=== PATIENT | male | born 1950 | race Caucasian/White ===

== ENCOUNTER 2022-06-14 10:30 | Outpatient (RCR) | payer MEDICARE, SELFPAY | END 2023-04-26 23:59 | disposition home or self-care (01) | PROVIDERS: PCP Family Medicine; Visit Provider Family Medicine | DX: R26.9 Unspecified abnormalities of gait and mobility (principal) | CPT/HCPCS: 97110; 97162 ==

== ENCOUNTER 2023-04-20 11:30 | Outpatient (CLI) | payer MEDICARE, SELFPAY | END 2023-04-20 11:31 | disposition home or self-care (01) | LOC: AMB 04-23 09:26 | PROVIDERS: PCP Family Medicine; Visit Provider Family Medicine | DX: R53.1 Weakness (principal) | CPT/HCPCS: A0998 ==

== ENCOUNTER 2023-10-05 12:16 | Outpatient (CLI) | payer MEDICARE, SELFPAY | END 2023-10-05 12:17 | disposition home or self-care (01) | LOC: AMB 10-09 11:04 | PROVIDERS: PCP Family Medicine; Visit Provider Emergency Medicine | DX: R53.1 Weakness (principal); E11.65 Type 2 diabetes mellitus with hyperglycemia | CPT/HCPCS: A0425; A0427 ==

== ENCOUNTER 2023-10-05 12:44 | Inpatient (IN) | payer MEDICARE, SELFPAY ==
[2023-10-05] VITALS (9 sets, daily range): BP systolic 115–153; BP diastolic 62–88; PULSE 65–81; RESP 16–18; TEMP 36.8–38.4; O2SAT 91–96; BMI 32.5; BMI 33.4
--- NOTE | 2023-10-05 13:04 | ED_ITS ---
HPI - General Adult General Chief complaint: Weakness Stated complaint: Weakness Time Seen by Provider: 10/05/23 13:04 History of Present Illness HPI narrative: Patient's called for EMS due to patient' s new weakness. EMS needed to use a stair lift to get patient from home. Had stroke in 2019 with left sided weakness. 73-year-old man brought by EMS to the emergency department concern of weakness. Does have a history of CVA with residual left-sided weakness and resides on the lower level the house with walk-in shower end other accommodations. History of diabetes. Apparently began to feel unwell over the course the night. Some cough. Spouse did know this until she went down to take breakfast to him and he did not seem quite right. Seemed confused. Blood sugars were escalating. Just very weak and had to call EMS to assist. Is noted to have a fever here on arrival. Denies chest pain or actual shortness of breath. No vomiting or diarrhea. No nausea. No dysuria or frequency. Related Data Home Medications Medication Instructions Recorded Confirmed amlodipine 5 mg tablet 5 mg PO DAILY 10/05/23 10/05/23 apixaban 5 mg tablet (Eliquis) 5 mg PO BID 10/05/23 10/05/23 ascorbic acid (vitamin C) 500 mg 500 mg PO QPM 10/05/23 10/05/23 tablet atorvastatin 40 mg tablet 40 mg PO QAM 10/05/23 10/05/23 cetirizine 10 mg tablet 10 mg PO DAILY 10/05/23 10/05/23 chlorthalidone 25 mg tablet 25 mg PO DAILY 10/05/23 10/05/23 cinnamon bark 500 mg capsule 500 mg PO DAILY 10/05/23 10/05/23 dulaglutide 3 mg/0.5 mL 3 mg subcut Q7D 10/05/23 10/05/23 subcutaneous pen injector (Trulicity) empagliflozin 25 mg tablet 25 mg PO DAILY 10/05/23 10/05/23 (Jardiance) glipizide 2.5 mg tablet, extended 2.5 mg PO DAILY 10/05/23 10/05/23 release 24 hr levothyroxine 137 mcg tablet 137 mcg PO QAM 10/05/23 10/05/23 lisinopril 40 mg tablet 40 mg PO DAILY 10/05/23 10/05/23 metformin 1,000 mg tablet 1,000 mg PO BID 10/05/23 10/05/23 metoprolol tartrate 25 mg tablet 25 mg PO BID 10/05/23 10/05/23 multivitamin (Daily Multi-Vitamin 1 tab PO QPM 10/05/23 10/05/23 tablet) nitroglycerin 0.4 mg sublingual 0.4 mg sublingual Q5M PRN 10/05/23 10/05/23 tablet omega [id number]-fish oil 1,000 mg 1 cap PO QPM 10/05/23 10/05/23 (120 mg-180 mg) capsule (Fish Oil) Previous Rx's Medication Instructions Recorded amoxicillin 875 mg-potassium 1 tab PO BID #10 tabs 10/07/23 clavulanate 125 mg tablet doxycycline hyclate 100 mg capsule 100 mg PO BID #20 caps 10/07/23 finasteride 5 mg tablet 5 mg PO DAILY #30 tabs 10/07/23 Allergies Allergy/AdvReac Type Severity Reaction Status Date / Time No Known Drug Allergies Allergy Verified 10/05/23 12:56 Review of Systems Status of ROS: Reports: 6 or more systems reviewed and unremarkable except as noted in History and below [facility] Medical History CKD stage 3 due to type 2 diabetes mellitus ?E11.22 - Type 2 diabetes mellitus with diabetic chronic kidney disease (ICD- 10) ?N18.30 - Chronic kidney disease, stage 3 unspecified (ICD-10) Obesity ?E66.9 - Obesity, unspecified (ICD-10) Diabetes mellitus type 2, insulin dependent ?E11.9 - Type 2 diabetes mellitus without complications (ICD-10) ?Z79.4 - nursing home (current) use of insulin (ICD-10) Hypothyroidism ?E03.9 - Hypothyroidism, unspecified (ICD-10) Hyperlipidemia ?E78.5 - Hyperlipidemia, unspecified (ICD-10) CAD (coronary artery disease) ?I25.10 - Atherosclerotic heart disease of [place] coronary artery without angina pectoris (ICD-10) Paroxysmal atrial fibrillation ?I48.0 - Paroxysmal atrial fibrillation (ICD-10) CVA (cerebral vascular accident) ?I63.9 - Cerebral infarction, unspecified (ICD-10) Hypertension ?I10 - Essential (primary) hypertension (ICD-10) Social History What is your current living situation?: I presently have a place to live Problems where you live: no known problems Problems where you live details: [place] In the past 12 months, utilities in danger of being shut off: no In past 12 months, lack of transportation kept you from medical appts, meetings, work, or getting things needed for daily living: no In the past 12 mos, have been you worried that your food would run out before you had money to buy more?: never true In the past 12 mos, the food you bought just didn't last and you didn't have money to buy more?: never true Smoking Status: Never smoker Second hand tobacco smoke exposure: No How often do you have a drink containing alcohol: never AUDIT-C Alcohol total score: 0 Non-prescribed substance use: denies use How often does anyone, including family, friends and others, physically hurt you : never How often does anyone, including family, friends and others, insult or talk down to you: never How often does anyone, including family, friends and others, threaten you with harm: never How often does anyone, including family, friends and others, scream or curse at you: never Exam Narrative: Exam Narrative: Seems little distracted. Skin is quite warm and dry. Well-perfused peripherally. no rashes. Is not tachypneic nor labored in breathing. Heart in regular rate and rhythm. Has persistent crepitus in right greater than left lower lung [place]. Extremities are without edema. abdomen is overweight soft and nontender. Oropharynx is a little sticky. Not erythematous. Moving all extremities without difficulty though the left side is a little weaker than the right generally. He is otherwise generally weak and needs assistance to transition. Const: Vital Signs, click to edit/add: Vital Signs - 24 hr 10/05/23 12:58 Temperature 101.1 F H Pulse Rate [Pulse Oximeter] 81 Respiratory Rate 18 Blood Pressure [Ri ght Upper Arm] 145/62 H Pulse Oximetry 91 Oxygen Delivery Me thod Room Air Documenting provider has reviewed patient's vital signs: yes Course Vital Signs Vital signs: Initial Vital Signs Temperature 101.1 F H 10/05/23 12:58 Temperature Source Temporal Artery Scan 10/05/23 12:58 Pulse Rate 81 10/05/23 12:58 Respiratory Rate 18 10/05/23 12:58 Blood Pressure 145/62 H 10/05/23 12:58 Blood Pressure Mean 89 10/05/23 12:58 Pulse Oximetry 91 10/05/23 12:58 Oxygen Delivery Method Room Air 10/05/23 12:58 Vital Signs Temperature 101.1 F H 10/05/23 12:58 Pulse Rate 81 10/05/23 12:58 Respiratory Rate 18 10/05/23 12:58 Blood Pressure 145/62 H 10/05/23 12:58 Pulse Oximetry 91 10/05/23 12:58 Oxygen Delivery Method Room Air 10/05/23 12:58 Temperature 97.5 F L 10/07/23 11:57 Pulse Rate 58 L 10/07/23 11:57 Respiratory Rate 18 10/07/23 11:57 Blood Pressure 167/75 H 10/07/23 11:57 Pulse Oximetry 96 10/07/23 11:57 Oxygen Delivery Method Room Air 10/07/23 11:57 Medications Administered Medications: Discontinued Medications Generic Name Dose Route Start Last Admin Trade Name Freq PRN Reason Stop Dose Admin Acetaminophen 650 mg 10/05/23 13:45 10/05/23 14:22 Acetaminophen 325 Mg Tablet PO 10/05/23 13:46 650 mg ONCE ONE Administration Acetaminophen 1,000 mg 10/05/23 17:44 10/06/23 00:03 Acetaminophen 325 Mg Tablet PO 1,000 mg Q6H PRN Administration Amlodipine Besylate 5 mg 10/06/23 09:00 10/07/23 09:39 Amlodipine 5 Mg Tablet PO 5 mg DAILY PILLO Administration Apixaban 5 mg 10/05/23 21:00 10/07/23 09:39 Apixaban 5 Mg Tablet PO 5 mg BID PILLO Administration Atorvastatin Calcium 40 mg 10/06/23 09:00 10/07/23 09:38 Atorvastatin Calcium 40 Mg Tablet PO 40 mg QAM PILLO Administration Bisacodyl 10 mg 10/05/23 17:44 10/05/23 20:50 Bisacodyl 10 Mg Supp.Rect RI 10 mg DAILY PRN Administration Cetirizine HCl 10 mg 10/06/23 09:00 10/07/23 09:39 Cetirizine Hcl 10 Mg Tablet PO 10 mg DAILY PILLO Administration Chlorthalidone 25 mg 10/06/23 09:00 10/07/23 09:38 Chlorthalidone 25 Mg Tablet PO 25 mg DAILY PILLO Administration Empagliflozin 25 mg 10/06/23 09:00 10/07/23 09:38 Empagliflozin 10 Mg Tablet PO 25 mg DAILY PILLO Administration Glipizide 2.5 mg 10/06/23 07:00 10/07/23 07:27 Glipizide 2.5 Mg Er Tab PO 2.5 mg DAILY@0700 PILLO Administration Sodium Chloride 1,000 mls @ 1,000 mls/hr 10/05/23 13:21 10/05/23 15:14 0.9 % Sodium Chloride 1000 Ml IV 10/05/23 14:20 Infused .Q1H ONE Infusion Lactated Ringer's 1,000 mls @ 1,000 mls/hr 10/05/23 15:04 10/05/23 15:14 Lactated Ringers 1000 Ml IV 10/05/23 16:03 1,000 mls/hr .Q1H ONE Administration Piperacillin Sod/Tazobactam 100 mls @ 200 mls/hr 10/05/23 15:36 10/05/23 15:59 Sod 4.5 gm/ Sodium Chloride IVPB 10/05/23 15:37 200 mls/hr ONCE ONE Administration Piperacillin Sod/Tazobactam 100 mls @ 200 mls/hr 10/05/23 22:00 10/07/23 09:40 Sod 3.375 gm/ Sodium Chloride IVPB 200 mls/hr Q6H PILLO Administration Vancomycin HCl 2,500 mg/ 525 mls @ 258.75 mls/hr 10/05/23 18:00 10/05/23 18:18 Sodium Chloride IVPB 10/05/23 20:01 258.75 mls/hr ONCE ONE Administration Protocol Sodium Chloride 1,000 mls @ 125 mls/hr 10/05/23 17:44 10/06/23 10:52 0.9 % Sodium Chloride 1000 Ml IV 0 mls/hr .Q8H PILLO Infusion Vancomycin HCl 1,500 mg/ 515 mls @ 343.333 mls/hr 10/06/23 18:00 10/06/23 19:30 Sodium Chloride IVPB Infused Q24H PILLO Infusion Ibuprofen 600 mg 10/05/23 13:45 10/05/23 14:22 Ibuprofen 200 Mg Tablet PO 10/05/23 13:46 600 mg ONCE ONE Administration Insulin Aspart 0 unit 10/05/23 18:00 10/07/23 12:07 Insulin Aspart 100 Unit/Ml SUBCUT 1 unit TIDWM [facility] Administration Protocol Insulin Aspart 3 unit 10/05/23 17:39 10/05/23 18:17 Insulin Aspart 100 Unit/Ml SUBCUT 10/05/23 17:40 3 unit ONCE ONE Administration Levothyroxine Sodium 112 mcg 10/06/23 07:00 10/07/23 07:24 Levothyroxine 112 Mcg Tablet PO 112 mcg DAILY@0700 [facility] Administration Levothyroxine Sodium 25 mcg 10/06/23 07:00 10/07/23 07:24 Levothyroxine 25 Mcg Tablet PO 25 mcg DAILY@0700 [facility] Administration Metoprolol Tartrate 25 mg 10/05/23 21:00 10/07/23 09:39 Metoprolol Tartrate 25 Mg Tablet PO 25 mg BID PILLO Administration Perflutren Lipid Microsphere 2 ml 10/06/23 16:11 10/06/23 16:16 Perflutren Lipid Microspheres 2 Ml Vial IV 10/06/23 16:12 2 ml ONCE ONE Administration Polyethylene Glycol 17 gm 10/06/23 09:00 10/07/23 09:50 Polyethylene Glycol 3350 17 Gm Pack PO Not Given DAILY PILLO Senna/Docusate Sodium 1 tab 10/05/23 21:00 10/07/23 09:50 Sennosides/Docusate Tablet PO Not Given BID PILLO Sodium Chloride 5 ml 10/05/23 17:44 10/06/23 16:20 Sodium Chloride 0.9 % (Flush) 10 Ml Syringe IVF 5 ml .FLUSH PRN Administration Sodium Chloride 5 ml 10/05/23 21:00 10/07/23 09:41 Sodium Chloride 0.9 % (Flush) 10 Ml Syringe IVF 5 ml BID PILLO Administration Medical Decision Making MDM Narrative Medical decision making narrative: Differential includes pneumonia, COVID, influenza, urinary tract infection. Given degree of weakness as described I wonder if he may not be able to go home. Will treat fever, hydrate. Given normal saline IV and acetaminophen ibuprofen. White count rather elevated at over 22,000. Creatinine 1.5 CRP of 3.4 lactate of 4.3 elevated proBNP urinalysis is unconvincing for infection. Would have concern about sepsis. Unclear source at this point. Triple swab was negative. Chest x-ray reviewed by me does not appear to show any infiltrate. Limited evaluation Radiology over-read as below INDICATION: Hypoxia, fever TECHNIQUE: Chest 1 views. COMPARISON: None. FINDINGS/IMPRESSION: Status post median sternotomy. Cardiomediastinal silhouette is mildly enlarged with pulmonary vascular congestion, likely accentuated by portable technique and low lung volumes bilaterally. No focal airspace consolidation, pleural effusion, or pneumothorax. No displaced fractures. Initiating antibiotic broad-spectrum per sepsis protocol. Has remained stable during time in the emergency department. Fever resolved. There was an episode of emesis with some blood tinging noted by nursing. No pain complaints on reassessment. Discussed with hospitalist for admission Lab Data Lab results reviewed: Yes I reviewed the patient's lab results Labs: Lab Results 10/05/23 10/05/23 10/05/23 Range/Units 13:05 14:00 14:39 WBC 22.58 H (4.50-11.00) K/uL RBC 5.61 (4.30-5.90) m/uL Hgb 14.3 (13.5-17.5) gm/dL Hct 46.1 (37.0-53.0) % MCV 82 (80-100) fL MCH 26 (26-34) pg MCHC 31 L (32-36) gm/dL RDW Coeff of [place]nee 16.1 H (11.5-15.5) % Plt Count 278 (140-440) K/uL Neut % (Auto) 95.3 H (42.0-72.0) % Lymph % (Auto) 2.3 L (20-44) % Cloud % (Auto) 1.9 (0.0-11.0) % Eos % (Auto) 0.0 (0.0-7.0) % Baso % (Auto) 0.1 (0.0-3.0) % Neut # (Auto) 21.50 H (1.7-7.0) K/uL Lymph # (Auto) 0.50 L (0.90-2.90) K/uL Cloud # (Auto) 0.40 (0.00-0.90) K/UL Eos # (Auto) 0.00 (0.00-0.50) K/uL Baso # (Auto) 0.00 (0.00-0.30) K/uL Abs Immat Gran (auto) 0.10 (0.00-0.30) K/uL Imm/Tot Granulo (auto) 0.4 % VBG pH 7.339 (7.32-7.43) VBG pCO2 38 L (40-50) mmHG VBG pO2 33.3 (25-47) mmHG VBG HCO3 20 L (21-28) mmol/L Sodium 143 (135-149) mmol/L Potassium 4.2 (3.6-5.1) mmol/L Chloride 106 (96-114) mmol/L Carbon Dioxide 17 L (20-32) mmol/L Anion Gap 20 H (7-15) mEq/L BUN 42 H (7-30) mg/dL Creatinine 1.5 (0.5-1.5) mg/dL Estimated Creat Clear 48.09 Estimated GFR 48 ml/min Glucose 295 H (60-115) mg/dL Lactate Calcium 9.6 (8.4-10.6) mg/dL C-Reactive Protein 3.4 H (0.5-1.0) mg/dL NT-Pro-B Natriuret Pep pg/mL Urine Color (Yellow) Urine Appearance (Clear) Urine pH (5.0-8.5) Ur Specific [place] (1.000-1.030) Urine Protein (Negative) Urine Glucose (UA) (Negative) Urine Ketones (Negative) Urine Blood (Negative) Urine Nitrite (Negative) Urine Bilirubin (Negative) Urine Urobilinogen (0.2-1.0) Ur Leukocyte Esterase (Negative) Urine RBC (0-2) Urine WBC (0-5) Ur Squamous Epith Cells (None-Few) Urine Bacteria (None) SARS-CoV-2 (PCR) Negative SARS-CoV-2 (Negative) Influenza Type A (PCR) Negative PCR FLU A (Negative) Influenza Type B (PCR) Negative PCR FLU B (Negative) RSV (PCR) Negative PCR RSV (Negative) 10/05/23 10/05/23 10/05/23 Range/Units 14:46 14:46 15:00 WBC (4.50-11.00) K/uL RBC (4.30-5.90) m/uL Hgb (13.5-17.5) gm/dL Hct (37.0-53.0) % MCV (80-100) fL MCH (26-34) pg MCHC (32-36) gm/dL RDW Coeff of Sydnee (11.5-15.5) % Plt Count (140-440) K/uL Neut % (Auto) (42.0-72.0) % Lymph % (Auto) (20-44) % Cloud % (Auto) (0.0-11.0) % Eos % (Auto) (0.0-7.0) % Baso % (Auto) (0.0-3.0) % Neut # (Auto) (1.7-7.0) K/uL Lymph # (Auto) (0.90-2.90) K/uL Cloud # (Auto) (0.00-0.90) K/UL Eos # (Auto) (0.00-0.50) K/uL Baso # (Auto) (0.00-0.30) K/uL Abs Immat Gran (auto) (0.00-0.30) K/uL Imm/Tot Granulo (auto) % VBG pH (7.32-7.43) VBG pCO2 (40-50) mmHG VBG pO2 (25-47) mmHG VBG HCO3 (21-28) mmol/L Sodium (135-149) mmol/L Potassium (3.6-5.1) mmol/L Chloride (96-114) mmol/L Carbon Dioxide (20-32) mmol/L Anion Gap (7-15) mEq/L BUN (7-30) mg/dL Creatinine (0.5-1.5) mg/dL Estimated Creat Clear Estimated GFR ml/min Glucose (60-115) mg/dL Lactate Cancelled 4.3 H* Calcium (8.4-10.6) mg/dL C-Reactive Protein (0.5-1.0) mg/dL NT-Pro-B Natriuret Pep 2450 pg/mL Urine Color Yellow (Yellow) Urine Appearance Clear (Clear) Urine pH 5.0 (5.0-8.5) Ur Specific [place] 1.010 (1.000-1.030) Urine Protein 2+ A (Negative) Urine Glucose (UA) 2+ A (Negative) Urine Ketones 1+ A (Negative) Urine Blood 1+ A (Negative) Urine Nitrite Negative (Negative) Urine Bilirubin Negative (Negative) Urine Urobilinogen 0.2 (0.2-1.0) Ur Leukocyte Esterase Negative (Negative) Urine RBC 2-5 A (0-2) Urine WBC 0-2 (0-5) Ur Squamous Epith Cells Few (None-Few) Urine Bacteria None (None) SARS-CoV-2 (PCR) (Negative) Influenza Type A (PCR) (Negative) Influenza Type B (PCR) (Negative) RSV (PCR) (Negative) Critical Care Time Critical Care Time Total Critical Care Time in Minutes: 60 Discharge Plan Discharge Clinical Impression: Acute neutrophilia, Fever, Elevated blood sugar level, Sepsis Patient Disposition: Admitted As Observation Condition: Improved Activity Level: Activity as Tolerated and No strenuous activity Discharge Diet: Regular
--- NOTE | 2023-10-05 13:45 | CRLHL7_ITS ---
For Patients: As a result of the Cures Act, medical imaging exams and procedure reports are released immediately into your electronic medical record. You may view this report before your referring provider. If you have questions, please contact your health care provider. INDICATION: Hypoxia, fever TECHNIQUE: Chest 1 views. COMPARISON: None. FINDINGS/IMPRESSION: Status post median sternotomy. Cardiomediastinal silhouette is mildly enlarged with pulmonary vascular congestion, likely accentuated by portable technique and low lung volumes bilaterally. No focal airspace consolidation, pleural effusion, or pneumothorax. No displaced fractures. Dictated by Artem Martinez MD @ 10/05/2023 3:40:24 PM (Electronically Signed)
[2023-10-05 13:47] LABS: PCR FLU A Negative PCR FLU A (Negative); PCR FLU B Negative PCR FLU B (Negative); PCR RSV Negative PCR RSV (Negative)
[2023-10-05 13:49] LABS: SARS PCR* Negative SARS-CoV-2 (Negative)
[2023-10-05 14:09] LABS: Basophils Percent Auto 0.1 % (0.0-3.0); Hematocrit 46.1 % (37.0-53.0); Hemoglobin* 14.3 gm/dL (13.5-17.5); Immature Granulocytes Pct Auto 0.4 %; Lymphocytes Percent Auto 2.3 % (20-44); Mean Corpuscular HGB Conc 31 gm/dL (32-36); Mean Corpuscular Hemoglobin 26 pg (26-34); Mean Corpuscular Volume 82 fL (80-100); Monocytes Percent Auto 1.9 % (0.0-11.0); Neutrophils Percent Auto 95.3 % (42.0-72.0); Platelet Count* 278 K/uL (140-440); RDW Coefficient of Variation % 16.1 % (11.5-15.5); Red Blood Count 5.61 m/uL (4.30-5.90); White Blood Count* 22.58 K/uL (4.50-11.00)
[2023-10-05 14:10] LABS: Slide Review Reflex No
[2023-10-05] MEDS: IBUPROFEN 200 MG TABLET 600 MG PO (14:22)
[2023-10-05] MEDS: 0.9 % SODIUM CHLORIDE 1000 ml 1,000 ML IV (14:22)
[2023-10-05] MEDS: ACETAMINOPHEN 325 MG TABLET 650 MG PO (14:22)
[2023-10-05 14:23] LABS: Chloride* 106 mmol/L (96-114); Potassium* 4.2 mmol/L (3.6-5.1); Sodium* 143 mmol/L (135-149)
[2023-10-05 14:26] LABS: Anion Gap 20 mEq/L (7-15); Blood Urea Nitrogen* 42 mg/dL (7-30); Carbon Dioxide* 17 mmol/L (20-32); Creatinine* 1.5 mg/dL (0.5-1.5); Est. Creatinine Clearance* 48.09; Estimated Glomerular Filt Rate 48 ml/min
[2023-10-05 14:27] LABS: Calcium* 9.6 mg/dL (8.4-10.6); Glucose* 295 mg/dL (60-115)
[2023-10-05 14:29] LABS: C Reactive Protein* 3.4 mg/dL (0.5-1.0)
[2023-10-05 14:53] LABS: HCO3 VBG 20 mmol/L (21-28); PCO2 VBG 38 mmHG (40-50); PO2 VBG 33.3 mmHG (25-47); pH VBG 7.339 (7.32-7.43)
[2023-10-05 15:06] LABS: Lactate* 4.3 mmol/L (0.5-1.9)
[2023-10-05] MEDS: LACTATED RINGERS 1000 ML 1,000 ML IV (15:14)
[2023-10-05 15:17] LABS: Bilirubin Urine Negative (Negative); Blood Urine 1+ (Negative); Color Urine Yellow (Yellow); Glucose Urine 2+ (Negative); Ketones Urine 1+ (Negative); Leukocyte Esterase Urine Negative (Negative); Nitrite Urine Negative (Negative); Protein Urine 2+ (Negative); Urobilinogen Urine 0.2 (0.2-1.0)
[2023-10-05 15:21] LABS: Appearance Urine Clear (Clear)
--- NOTE | 2023-10-05 15:41 | ED.NURSE ---
Patient had one small episode of hemoptysis noted after coughing. Bright red. Provider updated.
[2023-10-05 15:47] LABS: NT Pro B Type NatriureticPept* 2450 pg/mL
[2023-10-05] MEDS: PIPERACILLIN/TAZOBACTAM 4.5 GM in 0.9 % SODIUM CHLORIDE Mini-bag 100 ML IVPB (15:59)
[2023-10-05 16:08] LABS: WBC Urine 0-2 (0-5)
[2023-10-05 16:09] LABS: Squamous Epithelial Cell Urine Few (None-Few)
--- NOTE | 2023-10-05 16:11 | P.IMHP_ITS ---
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 Patient is seen at bedside with his . He tells me he felt his normal self yesterday but became feverish overnight. tells me he felt warm to touch. He reports vomiting this morning while at home but nausea and any further vomiting has since resolved. He otherwise denies headaches or dizziness. Denies chest pain or shortness of breath. Has not had a cough but did cough once in the ED with a small amount of blood noted in it by staff. Otherwise denies abdominal pain. Has been constipated with last BM 5 days ago. tells me they have been trying natural remedies but have been unsuccessful. No known exposures. Nonsmoker. Rare alcohol use. In ED, patient was noted to be febrile with a fever of 101.1, improved with Tylenol. Leukocytosis with left shift. Urinalysis essentially unremarkable. Elevated lactate. Chest x-ray without specific consolidations or pneumonia concerns. No further films obtained as no specific symptomatology gathered from patient. Review of Systems Narrative: REVIEW OF SYSTEMS: Complete review of systems performed and negative unless otherwise stated in HPI or below. [facility] Medical History CKD stage 3 due to type 2 diabetes mellitus ?E11.22 - Type 2 diabetes mellitus with diabetic chronic kidney disease (ICD- 10) ?N18.30 - Chronic kidney disease, stage 3 unspecified (ICD-10) Obesity ?E66.9 - Obesity, unspecified (ICD-10) Diabetes mellitus type 2, insulin dependent ?E11.9 - Type 2 diabetes mellitus without complications (ICD-10) ?Z79.4 - senior living (current) use of insulin (ICD-10) Hypothyroidism ?E03.9 - Hypothyroidism, unspecified (ICD-10) Hyperlipidemia ?E78.5 - Hyperlipidemia, unspecified (ICD-10) CAD (coronary artery disease) ?I25.10 - Atherosclerotic heart disease of [place] coronary artery without angina pectoris (ICD-10) Paroxysmal atrial fibrillation ?I48.0 - Paroxysmal atrial fibrillation (ICD-10) CVA (cerebral vascular accident) ?I63.9 - Cerebral infarction, unspecified (ICD-10) Hypertension ?I10 - Essential (primary) hypertension (ICD-10) Social History What is your current living situation?: I presently have a place to live Problems where you live: no known problems Problems where you live details: [place] In the past 12 months, utilities in danger of being shut off: no In past 12 months, lack of transportation kept you from medical appts, meetings, work, or getting things needed for daily living: no In the past 12 mos, have been you worried that your food would run out before you had money to buy more?: never true In the past 12 mos, the food you bought just didn't last and you didn't have money to buy more?: never true Smoking Status: Never smoker Second hand tobacco smoke exposure: No How often do you have a drink containing alcohol: never AUDIT-C Alcohol total score: 0 Non-prescribed substance use: denies use How often does anyone, including family, friends and others, physically hurt you : never How often does anyone, including family, friends and others, insult or talk down to you: never How often does anyone, including family, friends and others, threaten you with harm: never How often does anyone, including family, friends and others, scream or curse at you: never Meds Home Medications and Allergies Home Medications Medication Instructions Recorded Confirmed Type amlodipine 5 mg tablet 5 mg PO DAILY 10/05/23 10/05/23 History apixaban 5 mg tablet (Eliquis) 5 mg PO BID 10/05/23 10/05/23 History ascorbic acid (vitamin C) 500 mg 500 mg PO QPM 10/05/23 10/05/23 History tablet atorvastatin 40 mg tablet 40 mg PO QAM 10/05/23 10/05/23 History cetirizine 10 mg tablet 10 mg PO DAILY 10/05/23 10/05/23 History chlorthalidone 25 mg tablet 25 mg PO DAILY 10/05/23 10/05/23 History cinnamon bark 500 mg capsule 500 mg PO DAILY 10/05/23 10/05/23 History dulaglutide 3 mg/0.5 mL 3 mg subcut Q7D 10/05/23 10/05/23 History subcutaneous pen injector (Trulicity) empagliflozin 25 mg tablet 25 mg PO DAILY 10/05/23 10/05/23 History (Jardiance) glipizide 2.5 mg tablet, extended 2.5 mg PO DAILY 10/05/23 10/05/23 History release 24 hr levothyroxine 137 mcg tablet 137 mcg PO QAM 10/05/23 10/05/23 History lisinopril 40 mg tablet 40 mg PO DAILY 10/05/23 10/05/23 History metformin 1,000 mg tablet 1,000 mg PO BID 10/05/23 10/05/23 History metoprolol tartrate 25 mg tablet 25 mg PO BID 10/05/23 10/05/23 History multivitamin (Daily Multi-Vitamin 1 tab PO QPM 10/05/23 10/05/23 History tablet) nitroglycerin 0.4 mg sublingual 0.4 mg sublingual Q5M PRN 10/05/23 10/05/23 History tablet omega [id number]-fish oil 1,000 mg 1 cap PO QPM 10/05/23 10/05/23 History (120 mg-180 mg) capsule (Fish Oil) Allergies Allergy/AdvReac Type Severity Reaction Status Date / Time No Known Drug Allergies Allergy Verified 10/05/23 12:56 Exam Narrative: Exam Narrative: PHYSICAL EXAM General: Sitting up in bed. Pleasant, conversant, NAD HEENT: Normocephalic, atraumatic, sclera white, EOMI, oral mucosa moist Cardiovascular: RRR, S1S2. +1 pitting edema Pulmonary: CTA bilaterally without rhonchi, rales, expiratory wheezes. No dyspnea Abdominal: Soft, nondistended, NTTP, no guarding Neurological: Alert, answering questions appropriately, cranial nerves intact, no focal findings Extremities: No gross joint deformity or swelling. AROMI. Neurovascularly intact Skin: Warm, dry. Const: Vital Signs, click to edit/add: Vital Signs - 24 hr 10/05/23 12:58 10/05/23 15:11 10/05/23 15:14 Temperature 101.1 F H 98.3 F Pulse Rate 73 Pulse Rate [Pulse Oximeter] 81 Respiratory Rate 18 Blood Pressure 122/71 Blood Pressure [Ri ght Upper Arm] 145/62 H Pulse Oximetry 91 96 Oxygen Delivery Me thod Room Air Hospitalist - H&P: Result Labs Labs: Short CBC 10/05/23 Range/Units 14:00 WBC 22.58 H (4.50-11.00) K/uL Hgb 14.3 (13.5-17.5) gm/dL Hct 46.1 (37.0-53.0) % Plt Count 278 (140-440) K/uL BMP 10/05/23 14:00 Sodium 143 Potassium 4.2 Chloride 106 Carbon Dioxide 17 L BUN 42 H Creatinine 1.5 Glucose 295 H Calcium 9.6 Urine 10/05/23 Range/Units 15:00 Urine Color Yellow (Yellow) Urine Appearance Clear (Clear) Urine pH 5.0 (5.0-8.5) Ur Specific [place] 1.010 (1.000-1.030) Urine Protein 2+ A (Negative) Urine Glucose (UA) 2+ A (Negative) Imaging Chest x-ray: Attestation: I have reviewed the pertinent imaging results. Radiologist's impression: Chest 1 views. COMPARISON: None. FINDINGS/IMPRESSION: Status post median sternotomy. Cardiomediastinal silhouette is mildly enlarged with pulmonary vascular congestion, likely accentuated by portable technique and low lung volumes bilaterally. No focal airspace consolidation, pleural effusion, or pneumothorax. No displaced fractures. Assessment and Plan Assessment and plan (1) Sepsis: Problem comment: -unknown source at this time. Febrile. No tachycardia, on a beta-alma. Leukocytosis with left shift, lactate 4.3, UA essentially unremarkable, UC ordered, BC pending, SARS/influenza/RSV negative, CRP 3.4, CO2 17, BUN 42, CXR without focal airspace consolidation -patient reports vomiting this morning, none since, no acute belly pain, no further nausea. Consider CT abdomen if new or worsening symptoms. -received 2 L IVF in ED, continue maintenance fluids 125ml/hr -continue Zosyn as initiated in ED. Add vancomycin, pharmacy to dose -continue to trend labs Status: Acute (2) Hypertension: Problem comment: -stable, monitor for hypotension in sepsis -continue amlodipine, metoprolol with parameters -hold lisinopril, creatinine 1.5 -continue chlorthalidone for now given peripheral edema, fluids for sepsis Status: Chronic (3) CVA (cerebral vascular accident): Problem comment: -04/22/2020 -chronic left-sided deficit Status: Chronic (4) Paroxysmal atrial fibrillation: Problem comment: -chronic anticoagulation, continue apixaban -continue metoprolol for rate control with parameters -telemetry Status: Chronic (5) CAD (coronary artery disease): Problem comment: -s/p CABG 1999. Limited activity level Status: Chronic (6) Hyperlipidemia: Problem comment: -continue statin Status: Chronic (7) Hypothyroidism: Problem comment: -continue levothyroxine Status: Chronic (8) Diabetes mellitus type 2, insulin dependent: Problem comment: -most recent A1c 8.0, home monitor shows average glucose 140s -continue home glipizide, hold metformin and Trulicity. Continue Jardiance -diabetic diet, glucose checks ACHS, insulin sliding scale Status: Chronic (9) CKD stage 3 due to type 2 diabetes mellitus: Problem comment: -creatinine 1.5, most recently 1.39 and 1.44 -avoid nephrotoxic medications, renally dosing antibiotics. Hold lisinopril for now -continue to monitor Status: Chronic (10) Constipation: Problem comment: -recently trialing herbal alternatives -docusate sodium b.i.d., polyethylene glycol daily until stools Status: Acute (11) Peripheral edema: Problem comment: -BNP 2450 -echo 10/2019 shows grade 2 pattern of LV diastolic filling, normal global systolic function with EF 55-60% -continue chlorthalidone, monitoring fluid overload in sepsis management Status: Acute Plan CODE: Full as discussed with patient and VTE PPX: Continue apixaban Disposition: Inpatient
[2023-10-05] MEDS: INSULIN ASPART 100 UNIT/ML SUBCUT (18:17)
[2023-10-05] MEDS: 0.9 % SODIUM CHLORIDE 1000 ml 1,000 ML 125 ML IV (18:18)
--- NOTE | 2023-10-05 19:38 | PC.NURSE ---
Pt assist of two with pivot transfer. Pt had no complaints of pain during shift (17-19). Pt's at bedside. Pt on RA. Pt's blood glucose 298; see EMAR for intervention.
[2023-10-05 19:55] LABS: Lactate* 3.6 mmol/L (0.5-1.9)
[2023-10-05] MEDS: METOPROLOL TARTRATE 25 MG TABLET PO (20:49)
[2023-10-05] MEDS: SENNOSIDES/DOCUSATE TABLET 1 TAB PO (20:49)
[2023-10-05] MEDS: APIXABAN 5 MG TABLET PO (20:50)
[2023-10-05] MEDS: bisacodyL 10 MG SUPP.RECT PR (20:50)
[2023-10-05] MEDS: PIPERACILLIN/TAZOBACTAM 3.375 GM in 0.9 % SODIUM CHLORIDE Mini-bag 100 ML IVPB (21:42)
--- NOTE | 2023-10-05 22:12 | PC.NURSE ---
Shift note: The pt has been pleasant and cooperative. Denied chest pain and short of breath; spo2 has been in the 90s in RA. The pt appeared weak; but was able to transfer from chair to bed with 1-assist . Tem was 99 at 1900. The pt had hard large stool but he requested suppository med after he had BM ; the med is given no BM yet. IV ABX have been given; NS has been running at 125 ml/hr. The pt appeared without any acute distress
[2023-10-06] VITALS (11 sets, daily range): BP systolic 122–176; BP diastolic 66–84; PULSE 58–81; RESP 16–18; TEMP 36.8–37.3; O2SAT 93–98
[2023-10-06] MEDS: ACETAMINOPHEN 325 MG TABLET 1000 MG PO (00:03)
[2023-10-06] MEDS: PIPERACILLIN/TAZOBACTAM 3.375 GM in 0.9 % SODIUM CHLORIDE Mini-bag 100 ML IVPB ×4 (04:20→23:11)
[2023-10-06 05:13] LABS: Lactate* 2.4 mmol/L (0.5-1.9)
[2023-10-06 05:22] LABS: Basophils Percent Auto 0.2 % (0.0-3.0); Eosinophils Percent Auto 0.1 % (0.0-7.0); Hematocrit 38.3 % (37.0-53.0); Hemoglobin* 11.9 gm/dL (13.5-17.5); Immature Granulocytes Pct Auto 0.2 %; Mean Corpuscular HGB Conc 31 gm/dL (32-36); Mean Corpuscular Hemoglobin 26 pg (26-34); Mean Corpuscular Volume 83 fL (80-100); Monocytes Percent Auto 4.4 % (0.0-11.0); Neutrophils Percent Auto 89.1 % (42.0-72.0); Platelet Count* 226 K/uL (140-440); RDW Coefficient of Variation % 16.2 % (11.5-15.5); Red Blood Count 4.64 m/uL (4.30-5.90); White Blood Count* 15.54 K/uL (4.50-11.00)
[2023-10-06 05:29] LABS: Slide Review Reflex No
[2023-10-06] MEDS: 0.9 % SODIUM CHLORIDE 1000 ml 1,000 ML 125 ML IV (05:45)
[2023-10-06 05:47] LABS: Chloride* 109 mmol/L (96-114); Potassium* 4.4 mmol/L (3.6-5.1); Sodium* 143 mmol/L (135-149)
[2023-10-06 05:49] LABS: Creatinine* 1.8 mg/dL (0.5-1.5); Est. Creatinine Clearance* 40.07; Estimated Glomerular Filt Rate 39 ml/min
[2023-10-06 05:50] LABS: Anion Gap 12 mEq/L (7-15); Blood Urea Nitrogen* 49 mg/dL (7-30); Carbon Dioxide* 22 mmol/L (20-32)
[2023-10-06 05:51] LABS: Calcium* 8.6 mg/dL (8.4-10.6); Glucose* 201 mg/dL (60-115)
[2023-10-06 06:08] LABS: NT Pro B Type NatriureticPept* 4110 pg/mL
[2023-10-06 06:10] LABS: C Reactive Protein* 15.5 mg/dL (0.5-1.0)
[2023-10-06] MEDS: LEVOTHYROXINE 25 MCG TABLET PO (06:43)
[2023-10-06] MEDS: LEVOTHYROXINE 112 MCG TABLET PO (06:43)
[2023-10-06] MEDS: glipiZIDE 2.5 MG ER TAB PO (06:43)
--- NOTE | 2023-10-06 07:43 | PC.NURSE ---
Pt alert and oriented x3. Pt was given tylenol for 99.1 temp. Pt denies pain, sob, chest pain, and N/V. Pt had x2 large incontinent bm's overnight, sheets and gown changed x2. Pt is up A1/A2 with walker and gait belt to commode. Pt switched between bed and chair throughout night, slept only for a few hours at a time.
--- NOTE | 2023-10-06 07:54 | CRLHL7_ITS ---
For Patients: As a result of the 21st Century Cures Act, medical imaging exams and procedure reports are released immediately into your electronic medical record. You may view this report before your referring provider. If you have questions, please contact your health care provider. INDICATION: Illness, constipation, MAGO (sic) TECHNIQUE: CT abdomen and pelvis without contrast. COMPARISON: None. FINDINGS: The study is performed without intravenous contrast. This limits sensitivity for detection of abdominal/pelvic pathology, including pathology of the vasculature (specifically evaluation of possible vascular thromboembolism, arterial dissection, stenosis or occlusion), the integrity of the bowel (including bowel wall enhancement) and solid viscera (including detection of focal lesions within the viscera). If there is ongoing concern for otherwise occult pathology such as this, based on the clinical presentation of the patient, consider the risk/benefit of a study with intravenous contrast. Lower chest: Right middle lobe and left lower lobe multisegmental consolidation. Differential diagnostic considerations include aspiration pneumonitis. Mild cardiomegaly. Severe atherosclerotic coronary calcifications. Median sternotomy. Liver: Normal in size and attenuation. No suspicious masses. Gallbladder and bile ducts: Cholelithiasis. No gallbladder distention, pericholecystic inflammatory changes or biliary ductal dilatation. Pancreas: Unremarkable. No mass or inflammation. Spleen: Normal in size. No masses. Adrenal glands: Nonspecific 2.8 cm heterogeneous 12 HU right adrenal nodule (3; 38). Adrenal mass protocol CT is recommended with intravenous contrast for further characterization when the patient`s renal insufficiency has resolved. Alternatively, MRI could be performed for further evaluation. Kidneys: Mild symmetrical bilateral hydroureteronephrosis. Nonspecific bilateral symmetrical perinephric stranding. GI tract: No acute findings. Vasculature: Moderate aortoiliac and branch vessel atherosclerotic mural calcifications. Abdominal aorta is normal in caliber. Lymph nodes: No lymphadenopathy. Peritoneum/Abdominal Wall: Unremarkable. No sign of mass or infiltration. No free air or significant free fluid. Pelvis: Distended urinary bladder. The prostate measures approximately 90 mL in volume. Bones: Unremarkable for age. IMPRESSION: 1. Mild symmetrical bilateral hydroureteronephrosis. Nonspecific bilateral symmetrical perinephric stranding.Distended urinary bladder. Prostatomegaly. The prostate measures approximately 90 mL in volume. 2. Right middle lobe and left lower lobe multisegmental consolidation. Differential diagnostic considerations include aspiration pneumonitis. 3. Nonspecific 2.8 cm heterogeneous 12 HU right adrenal nodule (3; 38). An adrenal mass protocol CT is recommended with intravenous contrast for further characterization when the patient`s renal insufficiency has resolved. Alternatively, MRI could be performed on a nonemergent basis for further evaluation. Please note that all CT scans at this facility use dose modulation, iterative reconstruction, and/or weight-based dosing when appropriate to reduce radiation dose to as low as reasonably achievable. Dictated by Enrico Singh MD @ 10/06/2023 10:22:05 AM (Electronically Signed)
[2023-10-06] MEDS: INSULIN ASPART 100 UNIT/ML SUBCUT ×3 (09:26→17:52)
[2023-10-06] MEDS: ATORVASTATIN CALCIUM 40 MG TABLET PO (09:27)
[2023-10-06] MEDS: CHLORTHALIDONE 25 MG TABLET PO (09:28)
[2023-10-06] MEDS: SENNOSIDES/DOCUSATE TABLET 1 TAB PO ×2 (09:28→22:12)
[2023-10-06] MEDS: METOPROLOL TARTRATE 25 MG TABLET PO ×2 (09:29→22:12)
[2023-10-06] MEDS: APIXABAN 5 MG TABLET PO ×2 (09:29→22:12)
[2023-10-06] MEDS: CETIRIZINE HCL 10 MG TABLET PO (09:29)
[2023-10-06] MEDS: AMLODIPINE 5 MG TABLET PO (09:29)
[2023-10-06] MEDS: EMPAGLIFLOZIN 10 MG TABLET 25 MG PO (09:32)
[2023-10-06] MEDS: PERFLUTREN LIPID MICROSPHERES 2 ML VIAL IV (16:16)
[2023-10-06] MEDS: SODIUM CHLORIDE 0.9 % (FLUSH) 10 ML SYRINGE 5 ML IVF ×2 (16:20→22:12)
--- NOTE | 2023-10-06 16:21 | P.IMPN_ITS ---
Progress Note: A&P Assessment and plan (1) Sepsis: Problem details: -unknown source at this time. Febrile. No tachycardia, on a beta-alma. Leukocytosis with left shift, lactate 4.3 -Urine and Bcx NGTD on 10/06 -continue Zosyn/Vanco (09/26) -vomiting has resolved - no acute GI findings on CT A/P (non-contrast), possible aspiration pneumonitis -tolerating po intake hospital day 1, will d/c IVFs and continue to follow VS, labs, inflammatory markers Status: Acute (2) Hypertension: Problem details: -stable, monitor for hypotension in sepsis -continue amlodipine, metoprolol with parameters -hold lisinopril, creatinine 1.5 -continue chlorthalidone for now given peripheral edema, fluids for sepsis Status: Chronic (3) CVA (cerebral vascular accident): Problem details: -04/22/2020 -chronic left-sided deficit Status: Chronic (4) Paroxysmal atrial fibrillation: Problem details: -chronic anticoagulation, continue apixaban -continue metoprolol for rate control with parameters -telemetry Status: Chronic (5) CAD (coronary artery disease): Problem details: -s/p CABG 1999. Limited activity level Status: Chronic (6) Hyperlipidemia: Problem details: -continue statin Status: Chronic (7) Hypothyroidism: Problem details: -continue levothyroxine Status: Chronic (8) Diabetes mellitus type 2, insulin dependent: Problem details: -most recent A1c 8.0, home monitor shows average glucose 140s -continue home glipizide, hold metformin and Trulicity. Continue Jardiance -diabetic diet, glucose checks ACHS, insulin sliding scale Status: Chronic (9) CKD stage 3 due to type 2 diabetes mellitus: Problem details: -creatinine 1.5, most recently 1.39 and 1.44 --> creatinine 1.8 on 10/06 -avoid nephrotoxic medications, renally dosing antibiotics. Holding lisinopril for now -continue to monitor Status: Chronic (10) Constipation: Problem details: -resolved 10/06 am Status: Acute (11) Peripheral edema: Problem details: -BNP 2450 -echo 10/2019 shows grade 2 pattern of LV diastolic filling, normal global systolic function with EF 55-60% -continue chlorthalidone, monitoring fluid overload in sepsis management Status: Acute Plan - per above - continue abx - ppx with Apixaban - home when with stable, likely 1-2 days - updated at bedside, questions answered Subjective Date Seen: 10/06/23 Interval history: Ishan was admitted to the hospital last night for fever, leukocytosis, vomiting. He appeared to be septic via unknown source, Vancomycin and Zosyn initiated. Tmax 101.1, resolved with APAP. Today, patient feels better. NGTD on blood or urine cultures. Constipation resolved overnight. No further vomiting. Intermittent cough; noted one episode of hemoptysis today. Patient specifically denies chest pain, dyspnea, back pain, acute hematuria. Exam Narrative: Exam Narrative: GEN: Alert and oriented, answering questions appropriately HEENT: Normal external ears, EOMIs bilaterally, no scleral icterus CV: RRR, No concerning murmurs R: LCTA bilaterally without concerning wheezing, decreased breath sounds bilateral bases Ext: wwp, 1+ edema BLE, symmetric Skin: No concerning skin lesions or rashes on exposed skin Neuro: Mild L sided weakness (baseline/residual from CVA) Psych: Appropriate Const: Vital Signs, click to edit/add: Vital Signs - 24 hr 10/05/23 16:31 10/05/23 17:44 10/05/23 18:56 Temperature 100.7 F H Pulse Rate 73 Pulse Rate [Pulse Oximeter] 65 Pulse Rate [Right Pulse Oximeter] Respiratory Rate 16 16 Blood Pressure [Ri ght Arm] 115/62 Pulse Oximetry 96 Oxygen Delivery Me thod Room Air 10/05/23 19:21 10/05/23 19:31 10/05/23 23:30 Temperature 99 F Pulse Rate Pulse Rate [Pulse Oximeter] Pulse Rate [Right Pulse Oximeter] 72 73 Respiratory Rate 16 16 16 Blood Pressure [Ri ght Arm] 130/73 Pulse Oximetry 96 96 Oxygen Delivery Me thod Room Air Room Air 10/05/23 23:30 10/06/23 00:03 10/06/23 00:10 Temperature 99.1 F 99.1 F Pulse Rate 63 Pulse Rate [Pulse Oximeter] Pulse Rate [Right Pulse Oximeter] 73 Respiratory Rate 16 Blood Pressure [Ri ght Arm] 153/88 H Pulse Oximetry 94 Oxygen Delivery Me thod Room Air 10/06/23 02:35 10/06/23 09:00 10/06/23 09:49 Temperature 98.9 F 98.7 F Pulse Rate 61 Pulse Rate [Pulse Oximeter] Pulse Rate [Right Pulse Oximeter] 59 L 73 Respiratory Rate 18 18 Blood Pressure [Ri ght Arm] 132/68 176/70 H Pulse Oximetry 94 93 Oxygen Delivery Me thod Room Air Room Air 10/06/23 11:30 10/06/23 14:37 10/06/23 14:50 Temperature 98.7 F 98.4 F Pulse Rate 58 L Pulse Rate [Pulse Oximeter] 71 Pulse Rate [Right Pulse Oximeter] 71 60 Respiratory Rate 18 16 Blood Pressure [Ri ght Arm] 122/66 149/69 H Pulse Oximetry 95 94 Oxygen Delivery Me thod Room Air Room Air Labs Labs: Laboratory Results - last 24 hr 10/05/23 10/05/23 10/06/23 14:46 19:51 05:04 WBC 15.54 H RBC 4.64 Hgb 11.9 L Hct 38.3 MCV 83 MCH 26 MCHC 31 L RDW Coeff of [place] 16.2 H Plt Count 226 Neut % (Auto) 89.1 H Lymph % (Auto) 6.0 L [place] % (Auto) 4.4 Eos % (Auto) 0.1 Baso % (Auto) 0.2 Neut # (Auto) 13.80 H Lymph # (Auto) 0.90 [place] # (Auto) 0.70 Eos # (Auto) 0.00 Baso # (Auto) 0.00 Abs Immat Gran (auto) 0.00 Imm/Tot Granulo (auto) 0.2 Sodium 143 Potassium 4.4 Chloride 109 Carbon Dioxide 22 Anion Gap 12 BUN 49 H Creatinine 1.8 H Estimated Creat Clear 40.07 Estimated GFR 39 Glucose 201 H Lactate Cancelled 3.6 H 2.4 H Calcium 8.6 C-Reactive Protein 15.5 H NT-Pro-B Natriuret Pep 4110
--- NOTE | 2023-10-06 18:23 | PC.NURSE ---
Shift Summary: Patient pleasant and cooperative. Up with 1-2 assist, walker and gait belt. Frequently up to bathroom voiding around 100-200ml each time, per this is his baseline. Vitals stable and WNL, afebrile throughout shift. Tolerating regular diet, denies nausea. C/o pain with urination this evening, updated, patient already receiving antibiotic treatment and urine appears clear without foul odor. Denies SOB or chest pain.
[2023-10-07 03:15] VITALS: BP 163/75; PULSE 62; RESP 16; TEMP 36.9; O2SAT 95
[2023-10-07] MEDS: PIPERACILLIN/TAZOBACTAM 3.375 GM in 0.9 % SODIUM CHLORIDE Mini-bag 100 ML IVPB ×2 (04:33→09:40)
[2023-10-07 06:51] LABS: Lactate* 1.2 mmol/L (0.5-1.9)
[2023-10-07 07:13] VITALS: PULSE 49
[2023-10-07] MEDS: LEVOTHYROXINE 112 MCG TABLET PO (07:24)
[2023-10-07] MEDS: LEVOTHYROXINE 25 MCG TABLET PO (07:24)
[2023-10-07 07:27] LABS: Chloride* 109 mmol/L (96-114); Potassium* 3.9 mmol/L (3.6-5.1); Sodium* 141 mmol/L (135-149)
[2023-10-07] MEDS: glipiZIDE 2.5 MG ER TAB PO (07:27)
[2023-10-07 07:30] LABS: Anion Gap 11 mEq/L (7-15); Blood Urea Nitrogen* 51 mg/dL (7-30); Carbon Dioxide* 21 mmol/L (20-32); Creatinine* 1.8 mg/dL (0.5-1.5); Est. Creatinine Clearance* 40.07; Estimated Glomerular Filt Rate 39 ml/min; Glucose* 139 mg/dL (60-115)
[2023-10-07 07:31] LABS: Calcium* 8.4 mg/dL (8.4-10.6)
[2023-10-07 07:35] VITALS: BP 149/73; PULSE 53; RESP 16; TEMP 36.8; O2SAT 96
--- NOTE | 2023-10-07 07:43 | CRLHL7_ITS ---
For Patients: As a result of the Century Cures Act, medical imaging exams and procedure reports are released immediately into your electronic medical record. You may view this report before your referring provider. If you have questions, please contact your health care provider. INDICATION: Follow up 10/05/2023 TECHNIQUE: Portable AP image of the chest. COMPARISON: 10/05/2023 FINDINGS: Lungs low in volume with crowded markings in the bases. No obvious infiltrate. No pleural effusion. Heart size likely within normal limits, allowing for AP projection and shallow inspiration. Post coronary bypass. No significant osseous abnormality. IMPRESSION: Essentially negative, allowing for shallow inspiration. Dictated by Stanton Roberts MD @ 10/07/2023 9:56:36 AM (Electronically Signed)
--- NOTE | 2023-10-07 07:48 | PC.NURSE ---
Pt alert and oriented x3. Afebrile. Pt denies pain, chest pain, and N/V. Pt is up A1/SBA to bathroom. Pt has frequent urinations, pt denies bladder pain, no distention noted. Pt output each time is around 50-200 ml but pt often misses urine collection bowel and some falls on floor unmeasured and brief is often slightly wet from dribbling. Pt slept intermittently throughout night. Right antecubital IV started to leak and was taken out with catheter intact. New IV placed in right forearm.
[2023-10-07 07:50] LABS: C Reactive Protein* 14.4 mg/dL (0.5-1.0)
[2023-10-07 08:29] LABS: Basophils Percent Auto 0.3 % (0.0-3.0); Eosinophils Percent Auto 1.3 % (0.0-7.0); Hematocrit 38.3 % (37.0-53.0); Hemoglobin* 11.7 gm/dL (13.5-17.5); Immature Granulocytes Pct Auto 0.3 %; Lymphocytes Percent Auto 11.2 % (20-44); Mean Corpuscular HGB Conc 31 gm/dL (32-36); Mean Corpuscular Hemoglobin 25 pg (26-34); Mean Corpuscular Volume 83 fL (80-100); Monocytes Percent Auto 6.5 % (0.0-11.0); Neutrophils Percent Auto 80.4 % (42.0-72.0); Platelet Count* 216 K/uL (140-440); RDW Coefficient of Variation % 16.4 % (11.5-15.5); Red Blood Count 4.62 m/uL (4.30-5.90); White Blood Count* 11.15 K/uL (4.50-11.00)
[2023-10-07 08:35] LABS: Slide Review Reflex No
--- NOTE | 2023-10-07 09:19 | P.DS_ITS ---
DS: Providers Provider Date Seen: 10/07/23 Date of admission: 10/05/23 16:54 Primary care physician: Uvaldo Payne MD Admitting Clinician: Patience Cano MD Consults: 10/05/23 17:44 Consult to Occupational Therapy [CONS] Routine Comment: Reason(s) for OT Consult:: Evaluate and Treat Any Restrictions?:: No Restrictions Consult to Physical Therapy [CONS] Routine Comment: Reason(s) for PT Consult:: Evaluate and Treat Any Restrictions?:: No Restrictions 10/05/23 19:30 Consult to Occupational Therapy [CONS] Routine Comment: Reason(s) for OT Consult:: Difficulty Managing ADLs Any Restrictions?:: Wt Bearing as Tolerated Attending Physician on discharge: Fara Talbert MD Date of Discharge: 10/07/23 DS: Diagnosis Discharge Diagnosis (1) Sepsis: Status: Acute Problem details: -unknown source; symptoms include fever, leukocytosis, elevated lactate. No tac hycardia, on a beta-alma. -Urine and Bcx NGTD on 10/07 -on admission Zosyn/Vanco (09/26): discharging on Augmentin and Doxycycline -vomited 1-2 times prior to admission with no acute GI findings on CT A/P (non- contrast), possible aspiration pneumonitis -GI symptoms resolved during stay, tolerating po intake (2) CKD stage 3 due to type 2 diabetes mellitus: Status: Chronic Problem details: -with MAGO: baseline creatinine 1.5 --> 1.8 on discharge -holding Metformin and Lisinopril on discharge -possibly has obstructive component given BPH with LUTS; amenable to initiating Finasteride on discharge (3) Hypertension: Status: Chronic Problem details: -no concerning hypotension during stay -continued amlodipine, metoprolol with parameters -held lisinopril during stay given MAGO -Continued chlorthalidone for now given peripheral edema, fluids for sepsis (4) CVA (cerebral vascular accident): Status: Chronic Problem details: -04/22/2020 -chronic left-sided deficit (5) Paroxysmal atrial fibrillation: Status: Chronic Problem details: -chronic anticoagulation, continue apixaban -continue metoprolol for rate control with parameters -telemetry revealed no acute abnormalities (6) Diabetes mellitus type 2, insulin dependent: Status: Chronic Problem details: -most recent A1c 8.0, home monitor shows average glucose 140s -glucose during hospital stay 120s-280s -continue home glipizide, hold metformin and Trulicity. Continue Jardiance -diabetic diet, glucose checks ACHS, insulin sliding scale (7) Constipation: Status: Acute Problem details: -resolved 10/06 am (8) Peripheral edema: Status: Acute Problem details: -BNP 2450 -echo 10/2019 shows grade 2 pattern of LV diastolic filling, normal global systolic function with EF 55-60% -continue chlorthalidone, monitoring fluid overload in sepsis management (9) Adrenal nodule: Status: Acute Problem details: - incidental R adrenal nodule noted on imaging, patient and aware - consider further workup as outpatient with PCP if within goals of care DS: Summary Hospital Course Hospital Course: Ishan is a 73-year-old male who presented to the hospital on 10/05 for feeling poorly; appear to have sepsis with fever, leukocytosis, elevated lactate. He did not have hypotension or tachycardia. Zosyn and vancomycin initiated, blood in urine cultures remained negative during stay. Given 2 episodes of vomiting prior to admission, CT abdomen and pelvis obtained. Findings noted on CT: Incidental right adrenal lesion, prostatomegaly (patient endorses urinary hesitancy and incomplete better emptying), possible aspiration pneumonitis. Patient significantly improved and requested discharge home on hospital day 2. Given history of CVA, therapies followed during stay. They recommended assistance at home upon discharge, home health referral will be placed. Patient will see PCP for hospital discharge follow-up in 1-2 weeks, recommend BMP at that time Medication changes: 1. STOP Metformin and Lisinopril - do not restart these until you see Dr. Payne and confirm that your kidney function has improved 2. START antibiotics (Augmentin and Doxycycline - both sent to [facility]). Take these twice/day for 10 more days. Make sure you're taking a probiotic once/day while on antibiotics (sauerkraut, yogurt, kombucha drink, etc) 3. START Finasteride for your prostate (this will help with your incomplete bladder emptying) Status at Discharge Functional status at discharge: uses cane/walker Overall status at discharge: patient is progressing back to baseline Time Spent with Patient Time attestation: Total time spent providing and/or coordinating discharge services: Time spent: Greater than 30 minutes Specific discharge activities: Medication reconciliation, patient Education, documentation Exam Narrative: Exam Narrative: GEN: Alert and oriented, sitting comfortably in bedside chair, answering questions appropriately HEENT: EOMIs bilaterally, no scleral icterus CV: RRR, soft systolic murmur without concerning features R: LCTA bilaterally without concerning wheezing, no tachypnea at rest. Fine bibasilar crackles, L>R Ext: wwp, 1+ edema BLE, symmetric Skin: No concerning skin lesions or rashes on exposed skin Neuro: Mild L sided weakness (baseline/residual from CVA), using walker for ambulation Psych: Appropriate Const: Vital Signs, click to edit/add: Vital Signs - 24 hr 10/06/23 09:49 10/06/23 11:30 10/06/23 14:37 Temperature 98.7 F Pulse Rate 61 58 L Pulse Rate [Pulse Oximeter] 71 Pulse Rate [Right Pulse Oximeter] 71 Respiratory Rate 18 Blood Pressure [Ri ght Arm] 122/66 Pulse Oximetry 95 Oxygen Delivery Me thod Room Air 10/06/23 14:50 10/06/23 19:50 10/06/23 23:00 Temperature 98.4 F 98.6 F Pulse Rate 58 L Pulse Rate [Pulse Oximeter] Pulse Rate [Right Pulse Oximeter] 60 81 Respiratory Rate 16 18 Blood Pressure [Ri ght Arm] 149/69 H 159/70 H Pulse Oximetry 94 95 Oxygen Delivery Me thod Room Air Room Air 10/06/23 23:00 10/06/23 23:15 10/07/23 03:15 Temperature 98.2 F 98.4 F Pulse Rate Pulse Rate [Pulse Oximeter] 68 62 Pulse Rate [Right Pulse Oximeter] 81 Respiratory Rate 16 18 16 Blood Pressure [Ri ght Arm] 173/84 H 163/75 H Pulse Oximetry 98 95 Oxygen Delivery Me thod Room Air Room Air 10/07/23 07:13 10/07/23 07:35 Temperature 98.2 F Pulse Rate 49 L Pulse Rate [Pulse Oximeter] 53 L Pulse Rate [Right Pulse Oximeter] Respiratory Rate 16 Blood Pressure [Ri ght Arm] 149/73 H Pulse Oximetry 96 Oxygen Delivery Me thod Room Air DS: Data Data Completed and Pending Labs on day of discharge: Labs from last 24 hours 10/07/23 10/07/23 08:20 05:54 WBC 11.15 H RBC 4.62 Hgb 11.7 L Hct 38.3 MCV 83 MCH 25 L MCHC 31 L RDW Coeff of Sydnee 16.4 H Plt Count 216 Neut % (Auto) 80.4 H Lymph % (Auto) 11.2 L [place] % (Auto) 6.5 Eos % (Auto) 1.3 Baso % (Auto) 0.3 Neut # (Auto) 9.00 H Lymph # (Auto) 1.20 [place] # (Auto) 0.70 Eos # (Auto) 0.10 Baso # (Auto) 0.00 Abs Immat Gran (auto) 0.00 Imm/Tot Granulo (auto) 0.3 Sodium 141 Potassium 3.9 Chloride 109 Carbon Dioxide 21 Anion Gap 11 BUN 51 H Creatinine 1.8 H Estimated Creat Clear 40.07 Estimated GFR 39 Glucose 139 H Lactate 1.2 Calcium 8.4 C-Reactive Protein 14.4 H Preliminary micro results at discharge 10/05/23 18:08 Urine Culture - Preliminary Urine,Clean Catch > 100,000 COL/ML MIXED GRAM POSITIVE ALICIA ISOLATED NO FURTHER WORKUP 10/05/23 14:20 Blood Culture - Preliminary Blood NO GROWTH AFTER 24 HOURS Discharge Plan Discharge Disposition: Home, Self-Care Date of Admission: 10/05/23 16:54 Attending Provider on Discharge: Fara Talbert Primary Care Provider: Uvaldo Payne Condition: Improved Anticipated Discharge Date/Time: 10/07/23 09:18 Discharge Medications: New finasteride 5 mg tablet 5 mg PO DAILY Qty: 30 0RF amoxicillin-pot clavulanate 875-125 mg tablet 1 tab PO BID Qty: 10 0RF doxycycline hyclate 100 mg capsule 100 mg PO BID Qty: 20 0RF Continued amlodipine 5 mg tablet 5 mg PO DAILY glipizide 2.5 mg tablet extended release 24hr 2.5 mg PO DAILY metoprolol tartrate 25 mg tablet 25 mg PO BID Eliquis 5 mg tablet 5 mg PO BID atorvastatin 40 mg tablet 40 mg PO QAM chlorthalidone 25 mg tablet 25 mg PO DAILY Trulicity 3 mg/0.5 mL pen injector 3 mg subcut Q7D Rx Instructions: WEDNESDAYS levothyroxine 137 mcg tablet 137 mcg PO QAM Jardiance 25 mg tablet 25 mg PO DAILY ascorbic acid (vitamin C) 500 mg tablet 500 mg PO QPM cetirizine 10 mg tablet 10 mg PO DAILY multivitamin [Daily Multi-Vitamin] Tablet 1 tab PO QPM omega 1-aok-gap-fish oil [Fish Oil] 1,000 mg (120 mg-180 mg) capsule 1 cap PO QPM nitroglycerin 0.4 mg tablet, sublingual 0.4 mg sublingual Q5M PRN cinnamon bark 500 mg capsule 500 mg PO DAILY Held lisinopril 40 mg tablet 40 mg PO DAILY Hold Instructions: Resume on 10/15/23. hold until followup with Dr. Payne (decreased kidney function in hospital and stable BP) metformin 1,000 mg tablet 1,000 mg PO BID Hold Instructions: Resume on 10/15/23. hold until followup with Kerry (decreased kidney function in hospital) Discharge Orders: Discharge Order (Routine); Ordered 10/07/23 Ordered By: Fara Talbert Patient Education: Doxycycline (By mouth), Amoxicillin/Clavulanate Potassium (By mouth) (Augmentin, Augmentin..., Finasteride (By mouth), Sepsis (DC) Additional Instructions: Medication changes: 1. STOP Metformin and Lisinopril - do not restart these until you see Dr. Payne and confirm that your kidney function has improved 2. START antibiotics (Augmentin and Doxycycline - both sent to [facility]). Take these twice/day for 10 more days. Make sure you're taking a probiotic once/day while on antibiotics (sauerkraut, yogurt, kombucha drink, etc) 3. START Finasteride for your prostate (this will help with your incomplete bladder emptying) You have a small spot on your adrenal gland that was incidentally noted on CT scan. This can be looked at closer in the future with Dr. Payne if you're interested. Any more fevers or symptoms require a repeat visit to the ED. Activity Level: Activity as Tolerated and No strenuous activity Discharge Diet: Regular Follow Up Appointments: Uvaldo Payne MD [Primary Care Provider] - 10/12/23 11:45 am ([facility] for follow-up and check BMP.) Forms: [email or web address] Info Instructions
[2023-10-07] MEDS: ATORVASTATIN CALCIUM 40 MG TABLET PO (09:38)
[2023-10-07] MEDS: CHLORTHALIDONE 25 MG TABLET PO (09:38)
[2023-10-07] MEDS: EMPAGLIFLOZIN 10 MG TABLET 25 MG PO (09:38)
[2023-10-07] MEDS: APIXABAN 5 MG TABLET PO (09:39)
[2023-10-07] MEDS: AMLODIPINE 5 MG TABLET PO (09:39)
[2023-10-07] MEDS: METOPROLOL TARTRATE 25 MG TABLET PO (09:39)
[2023-10-07] MEDS: CETIRIZINE HCL 10 MG TABLET PO (09:39)
[2023-10-07] MEDS: SODIUM CHLORIDE 0.9 % (FLUSH) 10 ML SYRINGE 5 ML IVF (09:41)
[2023-10-07 11:57] VITALS: BP 167/75; PULSE 58; RESP 18; TEMP 36.4; O2SAT 96
[2023-10-07] MEDS: INSULIN ASPART 100 UNIT/ML SUBCUT (12:07)
--- NOTE | 2023-10-09 10:15 | PC.SOCIAL ---
Social work: Following up on Home Care referral written for PT/OT/RN follow up at discharge, caled , Damaris, and offered home care options. Damaris requested home care be arranged with [facility]. Called and faxed referral to [facility] for follow up.
== END 2023-10-07 14:46 | disposition home or self-care (01) | DRG 871 ==
LOC: ED 16:06 → MEDSURG 16:18
PROVIDERS: Family Medicine; Physician Assistant; Admitting Provider Family Medicine; Emergency Provider Family Medicine; PCP Family Medicine; Visit Provider Family Medicine
DX: A41.9 Sepsis, unspecified organism (principal); J69.0 Pneumonitis due to inhalation of food and vomit; I69.354 Hemiplegia and hemiparesis following cerebral infarction affecting left non-dominant side; N17.9 Acute kidney failure, unspecified; I48.0 Paroxysmal atrial fibrillation; E27.9 Disorder of adrenal gland, unspecified; K59.00 Constipation, unspecified; I12.9 Hypertensive chronic kidney disease with stage 1 through stage 4 chronic kidney disease, or unspecified chronic kidney disease; E11.22 Type 2 diabetes mellitus with diabetic chronic kidney disease; N18.30 Chronic kidney disease, stage 3 unspecified; I25.10 Atherosclerotic heart disease of native coronary artery without angina pectoris; E03.9 Hypothyroidism, unspecified; E66.9 Obesity, unspecified; Z95.1 Presence of aortocoronary bypass graft; Z79.01 Long term (current) use of anticoagulants; Z79.85 Long-term (current) use of injectable non-insulin antidiabetic drugs; Z79.84 Long term (current) use of oral hypoglycemic drugs; N40.1 Benign prostatic hyperplasia with lower urinary tract symptoms; E78.5 Hyperlipidemia, unspecified; R60.0 Localized edema
CPT/HCPCS: 36415; 71045; 74176; 80048; 81001; 82803; 82947; 82962; 83605; 83880; 85025; 86140; 87040; 87086; 87631; 93306; 94761; 97116; 97161; 97165; 97530; 97535; 99284; A9270; J2543; J3370; J7030; J7120; Q9957

== ENCOUNTER 2023-12-07 12:09 | Emergency (ER) | payer MEDICARE, SELFPAY ==
[2023-12-07 12:20] VITALS: BP 149/87; PULSE 58; RESP 18; TEMP 36.7; O2SAT 99; BMI 31.5
--- NOTE | 2023-12-07 12:50 | ED.MALEGU ---
HPI - Male Genitourinary General Date Seen: 12/07/23 Chief complaint: Urogenital Problems, Male Stated complaint: Catheter leaking Time Seen by Provider: 12/07/23 12:19 Source: patient Mode of arrival: ambulatory Limitations: no limitations History of Present Illness HPI Narrative: Patient is a 73-year-old male presenting to the emergency department for his Dyer catheter not working. Patient was previously admitted here in September for sepsis as CT scan returned showing some abnormalities within is adrenal gland. They wanted him to get this re-evaluated once he fully recovered any other repeat CT scan finally done yesterday. This was with his [facility] primary care provider. They noticed a large amount urine and a Dyer was placed. They were able to get out 2.3 L. Patient was not having much discomfort at that time. The Dyer was left in and he has scheduled follow-up with Urology 10 days and today. There is no other concerning findings on the CT scan. They noticed today that he vague was not emptying properly and there was blood in it too. He also thought there was some leakage around the catheter so they came in to get evaluated. If the time I was able to see the patient nurse staff has changed the Dyer bag already and is draining appropriately. Patient denies weakness, lightheadedness, dizziness, numbness. No other concerns noted at this time Related Data Home Medications Medication Instructions Recorded Confirmed amlodipine 5 mg tablet 5 mg PO DAILY 10/05/23 10/05/23 apixaban 5 mg tablet (Eliquis) 5 mg PO BID 10/05/23 10/05/23 ascorbic acid (vitamin C) 500 mg 500 mg PO QPM 10/05/23 10/05/23 tablet atorvastatin 40 mg tablet 40 mg PO QAM 10/05/23 10/05/23 cetirizine 10 mg tablet 10 mg PO DAILY 10/05/23 10/05/23 chlorthalidone 25 mg tablet 25 mg PO DAILY 10/05/23 10/05/23 cinnamon bark 500 mg capsule 500 mg PO DAILY 10/05/23 10/05/23 dulaglutide 3 mg/0.5 mL 3 mg subcut Q7D 10/05/23 10/05/23 subcutaneous pen injector (Trulicity) empagliflozin 25 mg tablet 25 mg PO DAILY 10/05/23 10/05/23 (Jardiance) glipizide 2.5 mg tablet, extended 2.5 mg PO DAILY 10/05/23 10/05/23 release 24 hr levothyroxine 137 mcg tablet 137 mcg PO QAM 10/05/23 10/05/23 lisinopril 40 mg tablet 40 mg PO DAILY 10/05/23 10/05/23 metformin 1,000 mg tablet 1,000 mg PO BID 10/05/23 10/05/23 metoprolol tartrate 25 mg tablet 25 mg PO BID 10/05/23 10/05/23 multivitamin (Daily Multi-Vitamin 1 tab PO QPM 10/05/23 10/05/23 tablet) nitroglycerin 0.4 mg sublingual 0.4 mg sublingual Q5M PRN 10/05/23 10/05/23 tablet omega 1-nim-rne-fish oil 1,000 mg 1 cap PO QPM 10/05/23 10/05/23 (120 mg-180 mg) capsule (Fish Oil) Previous Rx's Medication Instructions Recorded amoxicillin 875 mg-potassium 1 tab PO BID #10 tabs 10/07/23 clavulanate 125 mg tablet doxycycline hyclate 100 mg capsule 100 mg PO BID #20 caps 10/07/23 finasteride 5 mg tablet 5 mg PO DAILY #30 tabs 10/07/23 Allergies Allergy/AdvReac Type Severity Reaction Status Date / Time No Known Drug Allergies Allergy Verified 10/05/23 12:56 Review of Systems Status of ROS: Reports: 10 or more systems reviewed and unremarkable except as noted in History and below [facility] Medical History Peripheral edema ?R60.0 - Localized edema (ICD-10) Elevated blood sugar level ?R73.9 - Hyperglycemia, unspecified (ICD-10) CKD stage 3 due to type 2 diabetes mellitus ?E11.22 - Type 2 diabetes mellitus with diabetic chronic kidney disease (ICD-10) ?N18.30 - Chronic kidney disease, stage 3 unspecified (ICD-10) Obesity ?E66.9 - Obesity, unspecified (ICD-10) Diabetes mellitus type 2, insulin dependent ?E11.9 - Type 2 diabetes mellitus without complications (ICD-10) ?Z79.4 - skilled nursing (current) use of insulin (ICD-10) Hypothyroidism ?E03.9 - Hypothyroidism, unspecified (ICD-10) Hyperlipidemia ?E78.5 - Hyperlipidemia, unspecified (ICD-10) CAD (coronary artery disease) ?I25.10 - Atherosclerotic heart disease of [place] coronary artery without angina pectoris (ICD-10) Paroxysmal atrial fibrillation ?I48.0 - Paroxysmal atrial fibrillation (ICD-10) CVA (cerebral vascular accident) ?I63.9 - Cerebral infarction, unspecified (ICD-10) Hypertension ?I10 - Essential (primary) hypertension (ICD-10) Social History What is your current living situation?: I presently have a place to live Problems where you live: no known problems Problems where you live details: [place] In the past 12 months, utilities in danger of being shut off: no In past 12 months, lack of transportation kept you from medical appts, meetings, work, or getting things needed for daily living: no In the past 12 mos, have been you worried that your food would run out before you had money to buy more?: never true In the past 12 mos, the food you bought just didn't last and you didn't have money to buy more?: never true Smoking Status: Never smoker Do you use any of these nicotine containing products: None Second hand tobacco smoke exposure: No How often do you have a drink containing alcohol: never How often do you have six or more drinks on one occasion: Never AUDIT-C Alcohol total score: 0 Non-prescribed substance use: denies use How often does anyone, including family, friends and others, physically hurt you: never How often does anyone, including family, friends and others, insult or talk down to you: never How often does anyone, including family, friends and others, threaten you with harm: never How often does anyone, including family, friends and others, scream or curse at you: never service: No Exam Narrative: Exam Narrative: Const: Well-nourished, Well-developed, in no distress Eyes: PERRL, no conjunctival injection, and symmetrical lids HENT: Atraumatic external nose and ears. Moist mucous membranes. Neck: Symmetric, trachea midline, No thyromegaly. CVS: RRR, No murmurs or gallops. Peripheral pulses 2+ and equal in all extremities RESP: Unlabored respiratory effort. Clear to auscultation bilaterally. GI: Nontender/Nondistended, No rebound or guarding. MSK:Extremities w/o deformity, Normal Active ROM Skin: Warm, Dry. No rashes or lesions. Neuro: Normal Muscle tone, No focal neurological deficits. Psych: Awake, Alert, & Oriented x3. Appropriate mood and affect. Const: Vital Signs, click to edit/add: Vital Signs - 24 hr 12/07/23 12:20 Temperature 98.0 F Pulse Rate [Pulse Oximeter] 58 L Respiratory Rate 18 Blood Pressure [Ri ght Upper Arm] 149/87 H Pulse Oximetry 99 Oxygen Delivery Me thod Room Air Course Vital Signs Vital signs: Initial Vital Signs Temperature 98.0 F 12/07/23 12:20 Temperature Source Temporal Artery Scan 12/07/23 12:20 Pulse Rate 58 L 12/07/23 12:20 Pulse Rhythm Regular 12/07/23 12:20 Pulse Strength 3+ Normal 12/07/23 12:20 Respiratory Rate 18 12/07/23 12:20 Blood Pressure 149/87 H 12/07/23 12:20 Blood Pressure Mean 107 H 12/07/23 12:20 Blood Pressure Position Supine 12/07/23 12:20 Pulse Oximetry 99 12/07/23 12:20 Oxygen Delivery Method Room Air 12/07/23 12:20 Vital Signs Temperature 98.0 F 12/07/23 12:20 Pulse Rate 58 L 12/07/23 12:20 Respiratory Rate 18 12/07/23 12:20 Blood Pressure 149/87 H 12/07/23 12:20 Pulse Oximetry 99 12/07/23 12:20 Oxygen Delivery Method Room Air 12/07/23 12:20 Temperature 98.0 F 12/07/23 12:20 Pulse Rate 58 L 12/07/23 12:20 Respiratory Rate 18 12/07/23 12:20 Blood Pressure 149/87 H 12/07/23 12:20 Pulse Oximetry 99 12/07/23 12:20 Oxygen Delivery Method Room Air 12/07/23 12:20 MDM - Male Genitourinary MDM Narrative Medical decision making narrative: Patient is a 73-year-old male presenting for obstruction of his Dyer catheter bag. The bag was replaced area and 2.7 L of fluid was instant they drained. This does not meet criteria for postobstructive diuresis. We will monitor him for an hour to make sure he is not suffering from post obstructive diuresis considering how much he has already produced in the past day. After monitoring him for an hour he produced less than 200 mL of fluid. With home watch urinary retention he was having the I gave strict return precautions. I informed him that states monitor for the next 3 hours he is producing more than 200 mL/hr to be re-evaluated morphine produces more than 3 L over 24 hours. They state they understand and are agreeable to this plan. I do not believe the initial blood in the urine is of concern at this time the as urine was much clearer shortly after this. He will be discharged home. Discharge Plan Discharge Clinical Impression: Complication, blocked Dyer catheter Qualifiers: Encounter type: initial encounter Qualified Code(s): T83.091A - Other mechanical complication of indwelling urethral catheter, initial encounter Patient Disposition: Home, Self-Care Condition: Stable Instructions: Dyer Catheter Placement and Care (ED) Additional Instructions: If you notice for the next 3 hours that he produces more than 200 mL of fluid per hour or if you produce more than 3 L over 24 hours you showed be re-evaluated to have electrolytes checked. This could be a sign of postobstructive diuresis. It is important that he stays well hydrated. Return to emergency department for any other new or worsening symptoms. Prescriptions: No Action amlodipine 5 mg tablet 5 mg PO DAILY glipizide 2.5 mg tablet extended release 24hr 2.5 mg PO DAILY lisinopril 40 mg tablet 40 mg PO DAILY Hold Instructions: Resume on 10/15/23. hold until followup with Dr. Payne (decreased kidney function in hospital and stable BP) metoprolol tartrate 25 mg tablet 25 mg PO BID Eliquis 5 mg tablet 5 mg PO BID atorvastatin 40 mg tablet 40 mg PO QAM chlorthalidone 25 mg tablet 25 mg PO DAILY Trulicity 3 mg/0.5 mL pen injector 3 mg subcut Q7D Rx Instructions: WEDNESDAYS levothyroxine 137 mcg tablet 137 mcg PO QAM metformin 1,000 mg tablet 1,000 mg PO BID Hold Instructions: Resume on 10/15/23. hold until followup with Kerry (decreased kidney function in hospital) Jardiance 25 mg tablet 25 mg PO DAILY ascorbic acid (vitamin C) 500 mg tablet 500 mg PO QPM cetirizine 10 mg tablet 10 mg PO DAILY multivitamin [Daily Multi-Vitamin] Tablet 1 tab PO QPM omega 4-fdu-sxk-fish oil [Fish Oil] 1,000 mg (120 mg-180 mg) capsule 1 cap PO QPM nitroglycerin 0.4 mg tablet, sublingual 0.4 mg sublingual Q5M PRN cinnamon bark 500 mg capsule 500 mg PO DAILY finasteride 5 mg tablet 5 mg PO DAILY Qty: 30 0RF amoxicillin-pot clavulanate 875-125 mg tablet 1 tab PO BID Qty: 10 0RF doxycycline hyclate 100 mg capsule 100 mg PO BID Qty: 20 0RF Follow Up/Referrals: Uvaldo Payne MD [Primary Care Provider] - Stand Alone Forms: [facility] Info Instructions
== END 2023-12-07 14:29 | disposition home or self-care (01) ==
PROVIDERS: Emergency Provider Student in an Organized Health Care Education/Training Program; PCP Family Medicine
DX: T83.098A Other mechanical complication of other urinary catheter, initial encounter (principal)
CPT/HCPCS: 99282; 99283

== ENCOUNTER 2023-12-08 14:44 | Emergency (ER) | payer MEDICARE, SELFPAY ==
[2023-12-08 15:06] VITALS: BP 139/76; PULSE 61; RESP 16; TEMP 37.1; O2SAT 98; BMI 31.8
--- NOTE | 2023-12-08 15:33 | ED_ITS ---
HPI - General Adult General Chief complaint: Urogenital Problems, Male Stated complaint: Greater than 3 L output from Cath-told to come in Time Seen by Provider: 12/08/23 15:33 History of Present Illness HPI narrative: c/o 4185 ml output in the pt indwelling catheter, since pt DC 1404 yesterday. 73-year-old man presenting to the emergency department concern of urinary output, excessive. Has indwelling Dyer catheter. This was placed a few days ago for urinary retention. Seen in clinic for follow-up CT scan for evaluation of adrenal nodule and noted to have significant urinary retention. Was drained of 2300 mL of urine at that time and Dyer was left in. Returned yesterday as unable to drain. Was drained for 3 L of fluid and advised to come back if reached a certain amount of urinary output with concern of postobstructive diuresis. Has apparently met that threshold and here for re-evaluation. Does not feel particularly thirsty. Is not lightheaded. No fever. I see the urine bag is with clear but red urine. He is not having any pain. History of di abetes. Related Data Home Medications Medication Instructions Recorded Confirmed amlodipine 5 mg tablet 5 mg PO DAILY 10/05/23 10/05/23 apixaban 5 mg tablet (Eliquis) 5 mg PO BID 10/05/23 10/05/23 ascorbic acid (vitamin C) 500 mg 500 mg PO QPM 10/05/23 10/05/23 tablet atorvastatin 40 mg tablet 40 mg PO QAM 10/05/23 10/05/23 cetirizine 10 mg tablet 10 mg PO DAILY 10/05/23 10/05/23 chlorthalidone 25 mg tablet 25 mg PO DAILY 10/05/23 10/05/23 cinnamon bark 500 mg capsule 500 mg PO DAILY 10/05/23 10/05/23 dulaglutide 3 mg/0.5 mL 3 mg subcut Q7D 10/05/23 10/05/23 subcutaneous pen injector (Trulicity) empagliflozin 25 mg tablet 25 mg PO DAILY 10/05/23 10/05/23 (Jardiance) glipizide 2.5 mg tablet, extended 2.5 mg PO DAILY 10/05/23 10/05/23 release 24 hr levothyroxine 137 mcg tablet 137 mcg PO QAM 10/05/23 10/05/23 lisinopril 40 mg tablet 40 mg PO DAILY 10/05/23 10/05/23 metformin 1,000 mg tablet 1,000 mg PO BID 10/05/23 10/05/23 metoprolol tartrate 25 mg tablet 25 mg PO BID 10/05/23 10/05/23 multivitamin (Daily Multi-Vitamin 1 tab PO QPM 10/05/23 10/05/23 tablet) nitroglycerin 0.4 mg sublingual 0.4 mg sublingual Q5M PRN 10/05/23 10/05/23 tablet omega 9-cbl-cei-fish oil 1,000 mg 1 cap PO QPM 10/05/23 10/05/23 (120 mg-180 mg) capsule (Fish Oil) Previous Rx's Medication Instructions Recorded amoxicillin 875 mg-potassium 1 tab PO BID #10 tabs 10/07/23 clavulanate 125 mg tablet doxycycline hyclate 100 mg capsule 100 mg PO BID #20 caps 10/07/23 finasteride 5 mg tablet 5 mg PO DAILY #30 tabs 10/07/23 Allergies Allergy/AdvReac Type Severity Reaction Status Date / Time No Known Drug Allergies Allergy Verified 12/08/23 15:06 Review of Systems Status of ROS: Reports: 6 or more systems reviewed and unremarkable except as noted in History and below [facility] Medical History Peripheral edema ?R60.0 - Localized edema (ICD-10) Elevated blood sugar level ?R73.9 - Hyperglycemia, unspecified (ICD-10) CKD stage 3 due to type 2 diabetes mellitus ?E11.22 - Type 2 diabetes mellitus with diabetic chronic kidney disease (ICD- 10) ?N18.30 - Chronic kidney disease, stage 3 unspecified (ICD-10) Obesity ?E66.9 - Obesity, unspecified (ICD-10) Diabetes mellitus type 2, insulin dependent ?E11.9 - Type 2 diabetes mellitus without complications (ICD-10) ?Z79.4 - exterminator helper (current) use of insulin (ICD-10) Hypothyroidism ?E03.9 - Hypothyroidism, unspecified (ICD-10) Hyperlipidemia ?E78.5 - Hyperlipidemia, unspecified (ICD-10) CAD (coronary artery disease) ?I25.10 - Atherosclerotic heart disease of [place] coronary artery without angina pectoris (ICD-10) Paroxysmal atrial fibrillation ?I48.0 - Paroxysmal atrial fibrillation (ICD-10) CVA (cerebral vascular accident) ?I63.9 - Cerebral infarction, unspecified (ICD-10) Hypertension ?I10 - Essential (primary) hypertension (ICD-10) Social History What is your current living situation?: I presently have a place to live Problems where you live: no known problems Problems where you live details: [place] In the past 12 months, utilities in danger of being shut off: no In past 12 months, lack of transportation kept you from medical appts, meetings, work, or getting things needed for daily living: no In the past 12 mos, have been you worried that your food would run out before you had money to buy more?: never true In the past 12 mos, the food you bought just didn't last and you didn't have money to buy more?: never true Smoking Status: Never smoker Do you use any of these nicotine containing products: None Second hand tobacco smoke exposure: No How often do you have a drink containing alcohol: never How often do you have six or more drinks on one occasion: Never AUDIT-C Alcohol total score: 0 Non-prescribed substance use: denies use How often does anyone, including family, friends and others, physically hurt you : never How often does anyone, including family, friends and others, insult or talk down to you: never How often does anyone, including family, friends and others, threaten you with harm: never How often does anyone, including family, friends and others, scream or curse at you: never service: No Exam Narrative: Exam Narrative: Pleasant. NAD. Fully alert. Dyer in place. Transparent blood tinged urine in leg bag. Abdomen is soft and nontender. No masses apparent. Breathing easily. Well-perfused peripherally. No lower extremity edema. Const: Vital Signs, click to edit/add: Vital Signs - 24 hr 12/08/23 15:06 Temperature 98.7 F Pulse Rate [Pulse Oximeter] 61 Respiratory Rate 16 Blood Pressure [Ri ght Upper Arm] 139/76 Pulse Oximetry 98 Oxygen Delivery Me thod Room Air Documenting provider has reviewed patient's vital signs: yes Course Vital Signs Vital signs: Initial Vital Signs Temperature 98.7 F 12/08/23 15:06 Temperature Source Temporal Artery Scan 12/08/23 15:06 Pulse Rate 61 12/08/23 15:06 Respiratory Rate 16 12/08/23 15:06 Blood Pressure 139/76 12/08/23 15:06 Blood Pressure Mean 97 12/08/23 15:06 Blood Pressure Position Semi-Fowlers 12/08/23 15:06 Pulse Oximetry 98 12/08/23 15:06 Oxygen Delivery Method Room Air 12/08/23 15:06 Vital Signs Temperature 98.7 F 12/08/23 15:06 Pulse Rate 61 12/08/23 15:06 Respiratory Rate 16 12/08/23 15:06 Blood Pressure 139/76 12/08/23 15:06 Pulse Oximetry 98 12/08/23 15:06 Oxygen Delivery Method Room Air 12/08/23 15:06 Temperature 98.7 F 12/08/23 15:06 Pulse Rate 62 12/08/23 19:10 Respiratory Rate 18 12/08/23 19:10 Blood Pressure 150/80 H 12/08/23 19:10 Pulse Oximetry 97 12/08/23 19:10 Oxygen Delivery Method Room Air 12/08/23 19:10 Medical Decision Making MDM Narrative Medical decision making narrative: Does not appear to be dehydrated. Can check electrolytes. Urine is draining normally from catheter. Still red tinged. Labs are reassuring. White count mildly elevated. Has had somewhat isolated neutrophilia in the past. Urine with findings mostly of blood/irritation. I wonder if this is due to simply the marked over distension of the bladder. Culture though would be pending. Check symptoms otherwise prior to treating. Has urology follow-up in 9 days Lab Data Lab results reviewed: Yes I reviewed the patient's lab results Labs: Lab Results 12/08/23 12/08/23 Range/Units 16:25 16:55 WBC 14.87 H (4.50-11.00) K/uL RBC 4.54 (4.30-5.90) m/uL Hgb 11.4 L (13.5-17.5) gm/dL Hct 37.3 (37.0-53.0) % MCV 82 (80-100) fL MCH 25 L (26-34) pg MCHC 31 L (32-36) gm/dL RDW Coeff of Sydnee 16.3 H (11.5-15.5) % Plt Count 234 (140-440) K/uL Neut % (Auto) 80.6 H (42.0-72.0) % Lymph % (Auto) 12.2 L (20-44) % Upson % (Auto) 5.1 (0.0-11.0) % Eos % (Auto) 1.6 (0.0-7.0) % Baso % (Auto) 0.3 (0.0-3.0) % Neut # (Auto) 12.00 H (1.7-7.0) K/uL Lymph # (Auto) 1.80 (0.90-2.90) K/uL Upson # (Auto) 0.80 (0.00-0.90) K/UL Eos # (Auto) 0.20 (0.00-0.50) K/uL Baso # (Auto) 0.00 (0.00-0.30) K/uL Abs Immat Gran (auto) 0.00 (0.00-0.30) K/uL Imm/Tot Granulo (auto) 0.2 % Sodium 141 (135-149) mmol/L Potassium 4.1 (3.6-5.1) mmol/L Chloride 105 (96-114) mmol/L Carbon Dioxide 27 (20-32) mmol/L Anion Gap 9 (7-15) mEq/L BUN 30 (7-30) mg/dL Creatinine 1.6 H (0.5-1.5) mg/dL Estimated Creat Clear 46.38 Estimated GFR 45 ml/min Glucose 143 H (60-115) mg/dL Calcium 9.3 (8.4-10.6) mg/dL Urine Color Red A (Yellow) Urine Appearance Cloudy A (Clear) Urine pH 7.0 (5.0-8.5) Ur Specific [place] 1.020 (1.000-1.030) Urine Protein 3+ A (Negative) Urine Glucose (UA) 2+ A (Negative) Urine Ketones Trace A (Negative) Urine Blood 3+ A (Negative) Urine Nitrite Positive A (Negative) Urine Bilirubin 2+ A (Negative) Urine Urobilinogen 1.0 (0.2-1.0) Ur Leukocyte Esterase Negative (Negative) Urine RBC >100 A (0-2) Urine WBC 0-2 (0-5) Ur Squamous Epith Cells None (None-Few) Other Sediment Moderate A (None) Urine Bacteria None (None) Urine Yeast Moderate A (None) Discharge Plan Discharge Clinical Impression: Urinary retention Patient Disposition: Home, Self-Care Condition: Stable Additional Instructions: I see no reason to restrict your fluid intake at this time. I do think it might be helpful to record all liquid intake and all urine output over a period of 48-72 hours and report this to your primary care provider. Of course follow up with the Urology appointment as scheduled on the . We will be culturing your urine looking for potential infection. Prescriptions: No Action amlodipine 5 mg tablet 5 mg PO DAILY glipizide 2.5 mg tablet extended release 24hr 2.5 mg PO DAILY lisinopril 40 mg tablet 40 mg PO DAILY Hold Instructions: Resume on 10/15/23. hold until followup with Dr. Payne (decreased kidney function in hospital and stable BP) metoprolol tartrate 25 mg tablet 25 mg PO BID Eliquis 5 mg tablet 5 mg PO BID atorvastatin 40 mg tablet 40 mg PO QAM chlorthalidone 25 mg tablet 25 mg PO DAILY Trulicity 3 mg/0.5 mL pen injector 3 mg subcut Q7D Rx Instructions: WEDNESDAYS levothyroxine 137 mcg tablet 137 mcg PO QAM metformin 1,000 mg tablet 1,000 mg PO BID Hold Instructions: Resume on 10/15/23. hold until followup with Kerry (decreased kidney function in hospital) Jardiance 25 mg tablet 25 mg PO DAILY ascorbic acid (vitamin C) 500 mg tablet 500 mg PO QPM cetirizine 10 mg tablet 10 mg PO DAILY multivitamin [Daily Multi-Vitamin] Tablet 1 tab PO QPM omega 6-est-wva-fish oil [Fish Oil] 1,000 mg (120 mg-180 mg) capsule 1 cap PO QPM nitroglycerin 0.4 mg tablet, sublingual 0.4 mg sublingual Q5M PRN cinnamon bark 500 mg capsule 500 mg PO DAILY finasteride 5 mg tablet 5 mg PO DAILY Qty: 30 0RF amoxicillin-pot clavulanate 875-125 mg tablet 1 tab PO BID Qty: 10 0RF doxycycline hyclate 100 mg capsule 100 mg PO BID Qty: 20 0RF Follow Up/Referrals: Uvaldo Payne MD [Primary Care Provider] - Stand Alone Forms: [employer] Info Instructions
[2023-12-08 16:41] LABS: Basophils Percent Auto 0.3 % (0.0-3.0); Eosinophils Percent Auto 1.6 % (0.0-7.0); Hematocrit 37.3 % (37.0-53.0); Hemoglobin* 11.4 gm/dL (13.5-17.5); Immature Granulocytes Pct Auto 0.2 %; Lymphocytes Percent Auto 12.2 % (20-44); Mean Corpuscular HGB Conc 31 gm/dL (32-36); Mean Corpuscular Hemoglobin 25 pg (26-34); Mean Corpuscular Volume 82 fL (80-100); Monocytes Percent Auto 5.1 % (0.0-11.0); Neutrophils Percent Auto 80.6 % (42.0-72.0); Platelet Count* 234 K/uL (140-440); RDW Coefficient of Variation % 16.3 % (11.5-15.5); Red Blood Count 4.54 m/uL (4.30-5.90); White Blood Count* 14.87 K/uL (4.50-11.00)
[2023-12-08 16:45] LABS: Slide Review Reflex No
[2023-12-08 16:54] LABS: Chloride* 105 mmol/L (96-114); Potassium* 4.1 mmol/L (3.6-5.1); Sodium* 141 mmol/L (135-149)
[2023-12-08 16:57] LABS: Anion Gap 9 mEq/L (7-15); Blood Urea Nitrogen* 30 mg/dL (7-30); Carbon Dioxide* 27 mmol/L (20-32); Creatinine* 1.6 mg/dL (0.5-1.5); Est. Creatinine Clearance* 46.38; Estimated Glomerular Filt Rate 45 ml/min; Glucose* 143 mg/dL (60-115)
[2023-12-08 16:58] LABS: Calcium* 9.3 mg/dL (8.4-10.6)
[2023-12-08 17:03] LABS: Appearance Urine Cloudy (Clear); Bilirubin Urine 2+ (Negative); Blood Urine 3+ (Negative); Color Urine Red (Yellow); Glucose Urine 2+ (Negative); Ketones Urine Trace (Negative); Leukocyte Esterase Urine Negative (Negative); Nitrite Urine Positive (Negative); Protein Urine 3+ (Negative)
[2023-12-08 17:36] LABS: Other Sediment Urine Moderate; RBC Urine >100 (0-2); WBC Urine 0-2 (0-5)
[2023-12-08 19:10] VITALS: BP 150/80; PULSE 62; RESP 18; O2SAT 97
--- NOTE | 2023-12-09 13:05 | ED.NURSE ---
Spoke with Damaris/TOÑA and notified of urine cx results and Lilli called into [place] [facility] 500mg PO TID x7 days. No further questions at this time.
== END 2023-12-08 18:44 | disposition home or self-care (01) ==
PROVIDERS: Emergency Provider Family Medicine; PCP Family Medicine
DX: R33.9 Retention of urine, unspecified (principal)
CPT/HCPCS: 36415; 80048; 81001; 85025; 87086; 87186; 99283; 99284

== ENCOUNTER 2024-12-20 23:15 | Outpatient (CLI) | payer MEDICARE, SELFPAY | END 2024-12-20 23:16 | disposition home or self-care (01) | LOC: AMB 12-22 11:36 | PROVIDERS: PCP Family Medicine; Visit Provider Family Medicine | DX: R53.1 Weakness (principal) | CPT/HCPCS: A0998 ==

== ENCOUNTER 2025-01-09 12:46 | Outpatient (CLI) | payer MEDICARE, SELFPAY | END 2025-01-09 12:47 | disposition home or self-care (01) | LOC: WOUND 12:49 | PROVIDERS: PCP Family Medicine; Visit Provider Nurse Practitioner Family | DX: E11.621 Type 2 diabetes mellitus with foot ulcer (principal); L97.412 Non-pressure chronic ulcer of right heel and midfoot with fat layer exposed; L97.512 Non-pressure chronic ulcer of other part of right foot with fat layer exposed; E11.22 Type 2 diabetes mellitus with diabetic chronic kidney disease; N18.31 Chronic kidney disease, stage 3a; I25.10 Atherosclerotic heart disease of native coronary artery without angina pectoris; I12.9 Hypertensive chronic kidney disease with stage 1 through stage 4 chronic kidney disease, or unspecified chronic kidney disease; Z79.4 Long term (current) use of insulin; Z79.84 Long term (current) use of oral hypoglycemic drugs | CPT/HCPCS: 97597; G0463 ==

== ENCOUNTER 2025-01-15 13:39 | Outpatient (CLI) | payer MEDICARE, SELFPAY | END 2025-01-15 13:40 | disposition home or self-care (01) | LOC: WOUND 13:39 | PROVIDERS: PCP Family Medicine; Visit Provider Nurse Practitioner Family | DX: E11.621 Type 2 diabetes mellitus with foot ulcer (principal); L97.512 Non-pressure chronic ulcer of other part of right foot with fat layer exposed; L97.412 Non-pressure chronic ulcer of right heel and midfoot with fat layer exposed; E11.22 Type 2 diabetes mellitus with diabetic chronic kidney disease; N18.31 Chronic kidney disease, stage 3a; Z79.4 Long term (current) use of insulin | CPT/HCPCS: 97597 ==

== ENCOUNTER 2025-01-21 11:55 | Outpatient (CLI) | payer MEDICARE, SELFPAY ==
--- NOTE | 2025-01-21 14:17 | P.ANES_ITS ---
Anesthesia Charges Start Date/Time Anesthesia Start Date: 01/21/25 Anesthesia Start Time: 13:20 Stop Date/Time Anesthesia Stop Date: 01/21/25 Anesthesia Stop Time: 14:13 Summary Extremes of Age - Over 70 or under 1: SHUTTLE FINAL INSPECTOR Coding CPT Codes CPT Codes: ANES UPR LWR GI NDSC PX - 73891 ([id number]) P3 - PATIENT W/SEVERE SYS DISEASE, QX - SHUTTLE FINAL INSPECTOR SVC W/ MD MED DIRECTION, QK - JEWELRY SORTER 2-4 CNCRNT ANES PROC Additional Codes: Summary - Extremes of Age - Over 70 or under 1: SHUTTLE FINAL INSPECTOR ([id number])
--- NOTE | 2025-01-21 14:17 | W.ANESCHARGE ---
Anesthesia Charges Start Date/Time Anesthesia Start Date: 01/21/25 Anesthesia Start Time: 13:20 Stop Date/Time Anesthesia Stop Date: 01/21/25 Anesthesia Stop Time: 14:13 Summary Extremes of Age - Over 70 or under 1: GRIT REMOVAL OPERATOR Coding CPT Codes CPT Codes: ANES UPR LWR GI NDSC PX - 69234 ([id number]) P3 - PATIENT W/SEVERE SYS DISEASE, QX - GRIT REMOVAL OPERATOR SVC W/ MD MED DIRECTION, QK - POT FLUXER 2-4 CNCRNT ANES PROC Additional Codes: Summary - Extremes of Age - Over 70 or under 1: GRIT REMOVAL OPERATOR ([id number])
--- NOTE | 2025-01-21 14:50 | P.ANES_ITS ---
Anesthesia Charges Start Date/Time Anesthesia Start Date: 01/21/25 Anesthesia Start Time: 13:20 Stop Date/Time Anesthesia Stop Date: 01/21/25 Anesthesia Stop Time: 14:13 Summary Extremes of Age - Over 70 or under 1: MDA Coding CPT Codes CPT Codes: ANES UPR LWR GI NDSC PX - 48009 ([id number]) QK - LIGHT RAIL TRAIN OPERATOR 2-4 CNCRNT ANES PROC, QX - DENTAL OFFICER SVC W/ MD MED DIRECTION, P3 - PATIENT W/SEVERE SYS DISEASE Additional Codes: Summary - Extremes of Age - Over 70 or under 1: MDA ([id number])
== END 2025-01-21 11:56 | disposition home or self-care (01) ==
LOC: OP CLINIC 11:55
PROVIDERS: PCP Family Medicine; Visit Provider Internal Medicine Gastroenterology
DX: D50.9 Iron deficiency anemia, unspecified (principal); D12.5 Benign neoplasm of sigmoid colon; D12.2 Benign neoplasm of ascending colon; Z86.0101 Personal history of adenomatous and serrated colon polyps; K26.9 Duodenal ulcer, unspecified as acute or chronic, without hemorrhage or perforation
CPT/HCPCS: 00813; 43239; 45380; 45385; 88305; 88342; 99100; J2704; J3490

== ENCOUNTER 2025-01-22 14:00 | Outpatient (CLI) | payer MEDICARE, SELFPAY | END 2025-01-22 14:01 | disposition home or self-care (01) | LOC: WOUND 14:00 | PROVIDERS: PCP Family Medicine; Visit Provider Nurse Practitioner Family | DX: E11.621 Type 2 diabetes mellitus with foot ulcer (principal); L97.412 Non-pressure chronic ulcer of right heel and midfoot with fat layer exposed; L97.512 Non-pressure chronic ulcer of other part of right foot with fat layer exposed; E11.22 Type 2 diabetes mellitus with diabetic chronic kidney disease; N18.31 Chronic kidney disease, stage 3a; Z79.4 Long term (current) use of insulin | CPT/HCPCS: 97597 ==

== ENCOUNTER 2025-01-29 13:51 | Outpatient (CLI) | payer MEDICARE, SELFPAY | END 2025-01-29 13:52 | disposition home or self-care (01) | LOC: WOUND 13:51 | PROVIDERS: PCP Family Medicine; Visit Provider Nurse Practitioner Family | DX: E11.621 Type 2 diabetes mellitus with foot ulcer (principal); L97.412 Non-pressure chronic ulcer of right heel and midfoot with fat layer exposed; E11.22 Type 2 diabetes mellitus with diabetic chronic kidney disease; N18.31 Chronic kidney disease, stage 3a; Z79.4 Long term (current) use of insulin | CPT/HCPCS: 97597 ==

== ENCOUNTER 2025-02-05 13:38 | Outpatient (CLI) | payer MEDICARE, SELFPAY | END 2025-02-05 13:39 | disposition home or self-care (01) | LOC: WOUND 13:38 | PROVIDERS: PCP Family Medicine; Visit Provider Nurse Practitioner Family | DX: E11.621 Type 2 diabetes mellitus with foot ulcer (principal); L97.412 Non-pressure chronic ulcer of right heel and midfoot with fat layer exposed; E11.22 Type 2 diabetes mellitus with diabetic chronic kidney disease; N18.31 Chronic kidney disease, stage 3a; Z79.4 Long term (current) use of insulin | CPT/HCPCS: 97597 ==

== ENCOUNTER 2025-02-12 14:03 | Outpatient (CLI) | payer MEDICARE, SELFPAY | END 2025-02-12 14:04 | disposition home or self-care (01) | LOC: WOUND 14:03 | PROVIDERS: PCP Family Medicine; Visit Provider Nurse Practitioner Family | DX: E11.621 Type 2 diabetes mellitus with foot ulcer (principal); L97.412 Non-pressure chronic ulcer of right heel and midfoot with fat layer exposed; E11.22 Type 2 diabetes mellitus with diabetic chronic kidney disease; N18.31 Chronic kidney disease, stage 3a; Z79.4 Long term (current) use of insulin | CPT/HCPCS: 11042 ==

== ENCOUNTER 2025-02-19 13:50 | Outpatient (CLI) | payer MEDICARE, SELFPAY | END 2025-02-19 13:51 | disposition home or self-care (01) | LOC: WOUND 13:50 | PROVIDERS: PCP Family Medicine; Visit Provider Nurse Practitioner Family | DX: E11.621 Type 2 diabetes mellitus with foot ulcer (principal); L97.412 Non-pressure chronic ulcer of right heel and midfoot with fat layer exposed; E11.22 Type 2 diabetes mellitus with diabetic chronic kidney disease; N18.31 Chronic kidney disease, stage 3a; Z79.4 Long term (current) use of insulin | CPT/HCPCS: 11042 ==

== ENCOUNTER 2025-02-26 13:53 | Outpatient (CLI) | payer MEDICARE, SELFPAY | END 2025-02-26 13:54 | disposition home or self-care (01) | LOC: WOUND 13:53 | PROVIDERS: PCP Family Medicine; Visit Provider Physician Assistant | DX: E11.621 Type 2 diabetes mellitus with foot ulcer (principal); L97.412 Non-pressure chronic ulcer of right heel and midfoot with fat layer exposed; E11.22 Type 2 diabetes mellitus with diabetic chronic kidney disease; N18.1 Chronic kidney disease, stage 1; Z79.4 Long term (current) use of insulin | CPT/HCPCS: 97597 ==

== ENCOUNTER 2025-03-05 13:48 | Outpatient (CLI) | payer MEDICARE, SELFPAY | END 2025-03-05 13:49 | disposition home or self-care (01) | LOC: WOUND 13:48 | PROVIDERS: PCP Family Medicine; Visit Provider Nurse Practitioner Family | DX: E11.621 Type 2 diabetes mellitus with foot ulcer (principal); L97.412 Non-pressure chronic ulcer of right heel and midfoot with fat layer exposed; E11.22 Type 2 diabetes mellitus with diabetic chronic kidney disease; N18.31 Chronic kidney disease, stage 3a; Z79.4 Long term (current) use of insulin | CPT/HCPCS: 11042 ==

== ENCOUNTER 2025-03-12 13:52 | Outpatient (CLI) | payer MEDICARE, SELFPAY | END 2025-03-12 13:53 | disposition home or self-care (01) | LOC: WOUND 13:52 | PROVIDERS: PCP Family Medicine; Visit Provider Nurse Practitioner Family | DX: E11.621 Type 2 diabetes mellitus with foot ulcer (principal); L97.412 Non-pressure chronic ulcer of right heel and midfoot with fat layer exposed; E11.22 Type 2 diabetes mellitus with diabetic chronic kidney disease; N18.31 Chronic kidney disease, stage 3a; Z79.4 Long term (current) use of insulin | CPT/HCPCS: 11042 ==

== ENCOUNTER 2025-03-19 13:52 | Outpatient (CLI) | payer MEDICARE, SELFPAY | END 2025-03-19 13:53 | disposition home or self-care (01) | LOC: WOUND 13:52 | PROVIDERS: PCP Family Medicine; Visit Provider Nurse Practitioner Family | DX: E11.621 Type 2 diabetes mellitus with foot ulcer (principal); L97.412 Non-pressure chronic ulcer of right heel and midfoot with fat layer exposed; E11.22 Type 2 diabetes mellitus with diabetic chronic kidney disease; I12.9 Hypertensive chronic kidney disease with stage 1 through stage 4 chronic kidney disease, or unspecified chronic kidney disease; N18.31 Chronic kidney disease, stage 3a; Z79.4 Long term (current) use of insulin | CPT/HCPCS: 97597 ==

== ENCOUNTER 2025-03-26 13:56 | Outpatient (CLI) | payer MEDICARE, SELFPAY | END 2025-03-26 13:57 | disposition home or self-care (01) | LOC: WOUND 13:56 | PROVIDERS: PCP Family Medicine; Visit Provider Nurse Practitioner Family | DX: E11.621 Type 2 diabetes mellitus with foot ulcer (principal); L97.412 Non-pressure chronic ulcer of right heel and midfoot with fat layer exposed; E11.22 Type 2 diabetes mellitus with diabetic chronic kidney disease; N18.31 Chronic kidney disease, stage 3a; I25.10 Atherosclerotic heart disease of native coronary artery without angina pectoris; Z79.4 Long term (current) use of insulin | CPT/HCPCS: 97597; G0463 ==

== ENCOUNTER 2025-04-02 14:01 | Outpatient (CLI) | payer MEDICARE, SELFPAY | END 2025-04-02 14:02 | disposition home or self-care (01) | LOC: WOUND 14:01 | PROVIDERS: PCP Family Medicine; Visit Provider Nurse Practitioner Family | DX: E11.621 Type 2 diabetes mellitus with foot ulcer (principal); L97.412 Non-pressure chronic ulcer of right heel and midfoot with fat layer exposed; L97.411 Non-pressure chronic ulcer of right heel and midfoot limited to breakdown of skin; E11.22 Type 2 diabetes mellitus with diabetic chronic kidney disease; N18.31 Chronic kidney disease, stage 3a; Z79.4 Long term (current) use of insulin | CPT/HCPCS: 97597 ==

== ENCOUNTER 2025-04-09 14:05 | Outpatient (CLI) | payer MEDICARE, SELFPAY | END 2025-04-09 14:06 | disposition home or self-care (01) | LOC: WOUND 14:05 | PROVIDERS: PCP Family Medicine; Visit Provider Physician Assistant | DX: E11.621 Type 2 diabetes mellitus with foot ulcer (principal); L97.412 Non-pressure chronic ulcer of right heel and midfoot with fat layer exposed; L97.511 Non-pressure chronic ulcer of other part of right foot limited to breakdown of skin; E11.22 Type 2 diabetes mellitus with diabetic chronic kidney disease; N18.31 Chronic kidney disease, stage 3a; Z79.4 Long term (current) use of insulin | CPT/HCPCS: 97597 ==

== ENCOUNTER 2025-04-16 14:03 | Outpatient (CLI) | payer MEDICARE, SELFPAY | END 2025-04-16 14:04 | disposition home or self-care (01) | LOC: WOUND 14:03 | PROVIDERS: PCP Family Medicine; Visit Provider Nurse Practitioner Family | DX: E11.621 Type 2 diabetes mellitus with foot ulcer (principal); N18.31 Chronic kidney disease, stage 3a; I25.10 Atherosclerotic heart disease of native coronary artery without angina pectoris; I12.9 Hypertensive chronic kidney disease with stage 1 through stage 4 chronic kidney disease, or unspecified chronic kidney disease; Z79.4 Long term (current) use of insulin; L97.418 Non-pressure chronic ulcer of right heel and midfoot with other specified severity; E11.22 Type 2 diabetes mellitus with diabetic chronic kidney disease | CPT/HCPCS: G0463 ==

== ENCOUNTER 2025-04-30 10:58 | Outpatient (CLI) | payer MEDICARE, SELFPAY | END 2025-04-30 10:59 | disposition home or self-care (01) | LOC: WOUND 10:58 | PROVIDERS: PCP Family Medicine; Visit Provider Nurse Practitioner Family | DX: E11.621 Type 2 diabetes mellitus with foot ulcer (principal); L97.518 Non-pressure chronic ulcer of other part of right foot with other specified severity; E11.22 Type 2 diabetes mellitus with diabetic chronic kidney disease; N18.31 Chronic kidney disease, stage 3a; S90.822A Blister (nonthermal), left foot, initial encounter; Z79.84 Long term (current) use of oral hypoglycemic drugs | CPT/HCPCS: G0463 ==

== ENCOUNTER 2025-05-14 14:01 | Outpatient (CLI) | payer MEDICARE, SELFPAY | END 2025-05-14 14:02 | disposition home or self-care (01) | LOC: WOUND 14:01 | PROVIDERS: PCP Family Medicine; Visit Provider Nurse Practitioner Family | DX: Z86.31 Personal history of diabetic foot ulcer (principal); E11.22 Type 2 diabetes mellitus with diabetic chronic kidney disease; N18.31 Chronic kidney disease, stage 3a; Z79.4 Long term (current) use of insulin | CPT/HCPCS: G0463 ==

== ENCOUNTER 2025-05-28 07:48 | Outpatient (CLI) | payer MEDICARE, SELFPAY | END 2025-05-28 07:49 | disposition home or self-care (01) | LOC: WOUND 07:48 | PROVIDERS: PCP Family Medicine; Visit Provider Nurse Practitioner Family | DX: S91.312A Laceration without foreign body, left foot, initial encounter (principal); W22.8XXA Striking against or struck by other objects, initial encounter; E11.22 Type 2 diabetes mellitus with diabetic chronic kidney disease; N18.31 Chronic kidney disease, stage 3a; I12.9 Hypertensive chronic kidney disease with stage 1 through stage 4 chronic kidney disease, or unspecified chronic kidney disease; I25.10 Atherosclerotic heart disease of native coronary artery without angina pectoris; Z79.4 Long term (current) use of insulin | CPT/HCPCS: 11042; G0463 ==

== ENCOUNTER 2025-06-04 10:08 | Outpatient (CLI) | payer MEDICARE, SELFPAY | END 2025-06-04 10:09 | disposition home or self-care (01) | LOC: WOUND 10:08 | PROVIDERS: PCP Family Medicine; Visit Provider Nurse Practitioner Family | DX: S91.312A Laceration without foreign body, left foot, initial encounter (principal); W22.8XXA Striking against or struck by other objects, initial encounter; E11.22 Type 2 diabetes mellitus with diabetic chronic kidney disease; N18.31 Chronic kidney disease, stage 3a; I12.9 Hypertensive chronic kidney disease with stage 1 through stage 4 chronic kidney disease, or unspecified chronic kidney disease; Z79.4 Long term (current) use of insulin | CPT/HCPCS: 97597 ==

== ENCOUNTER 2025-06-11 11:02 | Outpatient (CLI) | payer MEDICARE, SELFPAY | END 2025-06-11 11:03 | disposition home or self-care (01) | LOC: WOUND 11:02 | PROVIDERS: PCP Family Medicine; Visit Provider Nurse Practitioner Family | DX: S91.312A Laceration without foreign body, left foot, initial encounter (principal); W22.8XXA Striking against or struck by other objects, initial encounter; E11.22 Type 2 diabetes mellitus with diabetic chronic kidney disease; N18.31 Chronic kidney disease, stage 3a; I25.10 Atherosclerotic heart disease of native coronary artery without angina pectoris; I89.0 Lymphedema, not elsewhere classified; Z79.4 Long term (current) use of insulin | CPT/HCPCS: G0463 ==

== ENCOUNTER 2025-06-25 11:02 | Outpatient (CLI) | payer MEDICARE, SELFPAY | END 2025-06-25 11:03 | disposition home or self-care (01) | LOC: WOUND 11:02 | PROVIDERS: PCP Family Medicine; Visit Provider Nurse Practitioner Family | DX: E11.621 Type 2 diabetes mellitus with foot ulcer (principal); I89.0 Lymphedema, not elsewhere classified; L97.512 Non-pressure chronic ulcer of other part of right foot with fat layer exposed; E11.22 Type 2 diabetes mellitus with diabetic chronic kidney disease; N18.31 Chronic kidney disease, stage 3a; I25.10 Atherosclerotic heart disease of native coronary artery without angina pectoris; Z79.4 Long term (current) use of insulin | CPT/HCPCS: 97602; G0463 ==

== ENCOUNTER 2025-07-02 11:05 | Outpatient (CLI) | payer MEDICARE, SELFPAY | END 2025-07-02 11:06 | disposition home or self-care (01) | LOC: WOUND 11:05 | PROVIDERS: PCP Family Medicine; Visit Provider Nurse Practitioner Family | DX: E11.621 Type 2 diabetes mellitus with foot ulcer (principal); I89.0 Lymphedema, not elsewhere classified; L97.511 Non-pressure chronic ulcer of other part of right foot limited to breakdown of skin; E11.22 Type 2 diabetes mellitus with diabetic chronic kidney disease; N18.31 Chronic kidney disease, stage 3a; Z79.4 Long term (current) use of insulin; Z79.84 Long term (current) use of oral hypoglycemic drugs; I25.10 Atherosclerotic heart disease of native coronary artery without angina pectoris | CPT/HCPCS: G0463 ==

== ENCOUNTER 2025-07-09 08:32 | Outpatient (CLI) | payer MEDICARE, SELFPAY | END 2025-07-09 08:33 | disposition home or self-care (01) | LOC: WOUND 08:32 | PROVIDERS: PCP Family Medicine; Visit Provider Nurse Practitioner Family | DX: I89.0 Lymphedema, not elsewhere classified (principal); Z86.31 Personal history of diabetic foot ulcer; E10.22 Type 1 diabetes mellitus with diabetic chronic kidney disease; N18.31 Chronic kidney disease, stage 3a; I25.10 Atherosclerotic heart disease of native coronary artery without angina pectoris; I12.9 Hypertensive chronic kidney disease with stage 1 through stage 4 chronic kidney disease, or unspecified chronic kidney disease; Z79.4 Long term (current) use of insulin; Z79.84 Long term (current) use of oral hypoglycemic drugs | CPT/HCPCS: G0463 ==